=== PATIENT | male | born 1965 | race Caucasian/White ===

== ENCOUNTER 2017-06-09 20:43 | Inpatient (IN) | payer MEDICARE ==
[2017-06-09 22:23] VITALS: BMI 25.8
--- NOTE | 2017-06-09 22:52 | HP ---
CIWA Score - CIWA Score Nausea/Vomitin-Mild Nausea/No Vomiting Muscle Tremors: 4-Moderate,w/Arms Extend Anxiety: 4-Mod. Anxious/Guarded Agitation: 4-Moderately Restless Paroxysmal Sweats: 1-Minimal Palms Moist Orientation: 1-Uncertain about Date Tacttile Disturbances: 0-None Auditory Disturbances: 0-None Visual Disturbances: 0-None Headache: 0-None Present CIWA-Ar Total Score: 15 Admission ROS BHS - HPI Chief Complaint: withdrawal sx Allergies/Adverse Reactions: Allergies Allergy/AdvReac Type Severity Reaction Status Date / Time No Known Allergies Allergy Verified 06/09/17 22:32 History of Present Illness: 51 years old male with long history of alcohol nicotine dependence has copd and depression is admitted to detox Exam Limitations: No Limitations - Ebola screening Have you traveled outside of the country in the last 21 days: No (N) Have you had contact with anyone from an Ebola affected area: No Have you been sick,other than usual withdrawal symptoms: No Do you have a fever: No - Review of Systems Constitutional: Changes in sleep, Weight Stable EENT: reports: No Symptoms Reported, Blurred Vision (eye glasses), Dental Problems (multiple teeth missing) Respiratory: reports: SOB with Exertion Cardiac: reports: Edema (both ankles) GI: reports: Nausea, Poor Fluid Intake, Indigestion, Abdominal cramping Musculoskeletal: reports: No Symptoms Reported Integumentary: reports: No Symptoms Reported Neuro: reports: Tremors Endocrine: reports: No Symptoms Reported Hematology: reports: No Symptoms Reported Psychiatric: reports: Judgement Intact, Anxious, Depressed Other Systems: Reviewed and Negative Patient History - Patient Medical History Hx Anemia: No Hx Asthma: No Hx Chronic Obstructive Pulmonary Disease (COPD): Yes Hx Cancer: No Hx Cardiac Disorders: Yes (CHD) Hx Congestive Heart Failure: No Hx Hypertension: No Hx Hypercholesterolemia: Yes (no medications) Hx Pacemaker: No HX Cerebrovascular Accident: No Hx Seizures: No Hx Dementia: No Hx Diabetes: No Hx Gastrointestinal Disorders: Yes Hx Liver Disease: No Hx Genitourinary Disorders: No Hx Sexually Transmitted Disorders: No Hx Renal Disease (ESRD): No Hx Thyroid Disease: No Hx Human Immunodeficiency Virus (HIV): No Hx Hepatitis C: No Hx Depression: Yes Hx Suicide Attempt: No Hx Bipolar Disorder: No Hx Schizophrenia: No - Patient Surgical History Past Surgical History: Yes Hx Neurologic Surgery: No Hx Cataract Extraction: No Hx Cardiac Surgery: Yes (OPEN HEART trple by pass in 2009 at [facility]) Hx Lung Surgery: No Hx Breast Surgery: No Hx Breast Biopsy: No Hx Abdominal Surgery: No Hx Appendectomy: No Hx Cholecystectomy: No Hx Genitourinary Surgery: No Hx Orthopedic Surgery: No Anesthesia Reaction: No - PPD History Previous Implant?: Yes Documented Results: Negative w/proof Implanted On Prior R Admission?: Yes Date: 03/08/15 Results: no result PPD to be Administered?: Yes - Smoking Cessation Smoking history: Current every day smoker Have you smoked in the past 12 months: Yes Aproximately how many cigarettes per day: 60 Cigars Per Day: 0 Hx Chewing Tobacco Use: No Initiated information on smoking cessation: Yes 'Breaking Loose' booklet given: 06/09/17 - Substance & Tx. History Hx Alcohol Use: Yes Hx Substance Use: No Substance Use Type: Alcohol Hx Substance Use Treatment: Yes (2006) - Substances Abused Alcohol Route: Oral Frequency: Daily Amount used: liquor- 2 pints, beer- 3 six packs Age of first use: 16 Date of Last Use: 06/09/17 Family Disease History - Family Disease History Family History: Unremarkable Admission Physical Exam BHS - Vital Signs Vital Signs: Vital Signs - 24 hr 06/09/17 22:20 Temperature 98.1 F Pulse Rate 89 Respiratory 20 Rate Blood Pressure 97/59 - Physical General Appearance: Yes: Nourished, Appropriately Dressed, Moderate Distress, Alcohol on Breath, Tremorous, Irritable, Sweating, Anxious HEENTM: Yes: Hearing grossly Normal, Normal ENT Inspection, Normocephalic, Normal Voice Respiratory: Yes: Chest Non-Tender, No Respiratory Distress, No Accessory Muscle Use, Rhonchi, Hyperresonant, Inspiration Neck: Yes: Supple, Trachea in good position Breast: Yes: Breasts Symetrical Cardiology: Yes: Regular Rhythm, Regular Rate, S1, S2, Surgical Scar Abdominal: Yes: Normal Bowel Sounds, Non Tender, Soft Genitourinary: Yes: Within Normal Limits Back: Yes: Normal Inspection Musculoskeletal: Yes: full range of Motion, Gait Steady Extremities: Yes: Normal Inspection, Normal Range of Motion, Non-Tender, Tremors , Swelling (both ankles) Neurological: Yes: Alert, Motor Strength 5/5, Normal Response, Depressed Affect Integumentary: Yes: Warm, Clammy Lymphatic: Yes: Within Normal Limits - Diagnostic (1) Nicotine dependence Current Visit: Yes Status: Acute Qualifiers: Nicotine product type: cigarettes Substance use status: in withdrawal Qualified Code(s): F17.213 - Nicotine dependence, cigarettes, with withdrawal (2) Alcohol dependence with uncomplicated withdrawal Current Visit: Yes Status: Acute (3) GERD (gastroesophageal reflux disease) Current Visit: Yes Status: Chronic Qualifiers: Esophagitis presence: without esophagitis Qualified Code(s): K21.9 - Gastro-esophageal reflux disease without esophagitis (4) COPD (chronic obstructive pulmonary disease) Current Visit: Yes Status: Chronic Qualifiers: COPD type: emphysema Emphysema type: panlobular Qualified Code(s ): J43.1 - Panlobular emphysema (5) S/P triple vessel bypass Current Visit: Yes Status: Resolved (6) Depression (emotion) Current Visit: Yes Status: Suspected Qualifiers: Depression Type: dysthymia Qualified Code(s): F34.1 - Dysthymic disorder Comment: sober x 10 years Cleared for Admission [facility] - Detox or Rehab [facility] Level of Care: Medically Managed Detox Regimen/Protocol: Librium [facility] Breath Alcohol Content Breath Alcohol Content: 0.362 Urine Drug Screen - Results Drug Screen Negative: Yes
[2017-06-09] MEDS ORDERED: MENTHOL/PHENOL 1 EACH UD MM PRN (23:00)
[2017-06-09] MEDS ORDERED: ACETAMINOPHEN 325 MG TABLET (FP) PO PRN (23:00)
[2017-06-09] MEDS ORDERED: MAG HYDROX/AL HYDROX/SIMETH 30 ML UNIT-DOSE CUP PO PRN (23:00)
[2017-06-09] MEDS ORDERED: hydrOXYzine PAMOATE 50 MG CAPSULE (FP) PO PRN (23:00)
[2017-06-09] MEDS ORDERED: MAGNESIUM HYDROX 2400MG/30ML ORAL SUSPENSION 30 ML CUP PO PRN (23:00)
[2017-06-09] MEDS ORDERED: guaiFENesin/D-METHORPHAN HB 10 ML UNIT-DOSE CUPS PO PRN (23:00)
[2017-06-09] MEDS ORDERED: P-EPHED 60MG/TRIPROLIDI 2.5MG TABLET PO PRN (23:00)
[2017-06-09] MEDS ORDERED: chlordiazePOXIDE HCL 25 MG CAPSULE PO PRN (23:00)
[2017-06-09] MEDS ORDERED: NICOTINE POLACRILEX 4 MG GUM BC PRN (23:00)
[2017-06-09] MEDS ORDERED: MAGNESIUM CITRATE 300 ML BOTTLE PO PRN (23:00)
[2017-06-09] MEDS ORDERED: diphenhydrAMINE HCL 50 MG CAPSULE PO PRN (23:00)
[2017-06-09] MEDS ORDERED: ALBUTEROL SO4 6.7 GM HFA INHALER IH PRN (23:03)
[2017-06-09] MEDS: CLINDAMYCIN HCL 150 MG CAPSULE (FP) PO SCH (23:42)
[2017-06-09] MEDS: chlordiazePOXIDE HCL 25 MG CAPSULE PO SCH (23:42)
--- NOTE | 2017-06-10 00:53 | PN ---
S Progress Note Note: S-ASKED TO SEE PT FOR C/O NON RADIATING CONTINOUS C.P 07/04, SOB, WEAKNESS. DENIES FEVER, CHILLS, 0- LYING IN BED MILD DISTRESS, TACHYPNEIC, INTOXICATED CV TACHY EKG: NSR; VENT RATE [address]-T WAVE CHANGES CANNOT RULE OUT ANTERIOR INFARCT; ABN EKG LUNGS COARSE BREATH SOUNDS + WHEEZING AND HYPERRESONANCE VS 98.8 P92 R24 B/P 84/47 O2 RA 90% A- 51 Y.O. MALE ADMITTED WITH ETOH DEPENDENCE FOR DETOX NOW WITH C/O C.P. 07/04 AND IS HYPOTENSIVE. CLIENT STARTED ON CLINDAMYCIN FOR POSSIBLE PNA. PMHX CAD WITH BYPASS, HLD, GERD, NICOTINE DEPENDENCE. P- TRANSFER TO [facility] FOR EVAL C.P., HYPOTENSION AND R/O PNA EKG START 02 2 NC REPORT GIVEN TO DAMION HERNÁNDEZ WILL HOLD OFF ON NITRO 2/2 HYPOTENSION AND CLIENT WILL NOT REMAIN IN BED.
[2017-06-10] MEDS: CLINDAMYCIN HCL 150 MG CAPSULE (FP) PO SCH ×3 (06:23→22:39)
[2017-06-10] MEDS: chlordiazePOXIDE HCL 25 MG CAPSULE PO SCH ×4 (06:23→22:39)
[2017-06-10] MEDS: PRENATAL VITAMINS W/ FOLIC ACID TABLET (FP) PO SCH (10:21)
[2017-06-10] MEDS: BUDESONIDE/FORMETEROL FUMARATE 80/4.5 mcg INHALER IH SCH ×2 (10:21→22:39)
[2017-06-10] MEDS: NICOTINE 21 MG/24 HOURS TOPICAL PATCH TD SCH (10:21)
[2017-06-10] MEDS: RANITIDINE HCL 150 MG TABLET (FP) PO SCH ×2 (10:21→22:39)
[2017-06-10 10:36] LABS: MCH 29.9 pg (25.7-33.7); MCHC 33.3 g/dl (32.0-35.9); MEAN CELL VOLUME 89.8 fl (80-96); MEAN PLT VOLUME 8.8 fl (7.5-11.1); PLATELET COUNT 107 K/MM3 (134-434); RDW 13.8 % (11.9-15.9); WHITE BLOOD COUNT 9.8 K/mm3 (4.0-10.0)
[2017-06-10 10:50] LABS: ANION GAP 12 (8-16); CALCIUM 7.2 mg/dL (8.5-10.1); CO2 23 mmol/L (21-32); CREATININE 0.8 mg/dL (0.7-1.3); GLUCOSE,RANDOM 96 mg/dL (74-106); SGOT/AST 57 U/L (15-37); SGPT/ALT 52 U/L (12-78)
[2017-06-10 10:51] LABS: ALK PHOS 109 U/L (45-117); BILIRUBIN,TOTAL 0.7 mg/dL (0.2-1.0); TOT PROT 5.7 g/dl (6.4-8.2)
[2017-06-10] MEDS ORDERED: ONDANSETRON *ODT* 4 MG TABLET SL PRN (11:23)
--- NOTE | 2017-06-10 14:23 | PN ---
[facility] CIWA - CIWA Score Nausea/Vomitin-Int. Nausea w/Dry Heave Muscle Tremors: 2 Anxiety: 4-Mod. Anxious/Guarded Agitation: 3 Paroxysmal Sweats: 4-Forehead w/Sweat Beads Orientation: 2-Disoriented Date<2 days Tacttile Disturbances: 2-Mild Itch/Numbness/Burn Auditory Disturbances: 0-None Visual Disturbances: 0-None Headache: 0-None Present CIWA-Ar Total Score: 21 S Progress Note (SOAP) Subjective: Sweating, Nausea, Dry Heaving, Diarrhea. Objective: PT. A & O X 2 (DISORIENTED ABOUT DAY / DATE). PT. OBSERVED AMBULAITN MILVIA UNIT. NO ACUTE DISTRESS. PT. DENIES CHEST PAIN. LUNG SOUNDS AUSCULTATED CLEAR AND EQUAL BILATERALLY. 06/10/17 14:18 Vital Signs Temperature 97.6 F 06/10/17 14:13 Pulse Rate 91 H 06/10/17 14:13 Respiratory Rate 18 06/10/17 14:13 Blood Pressure 124/78 06/10/17 14:13 O2 Sat by Pulse Oximetry (%) Laboratory Tests 06/10/17 06/10/17 06/10/17 08:00 08:00 08:00 WBC 9.8 RBC 4.40 Hgb 13.2 Hct 39.5 MCV 89.8 MCH 29.9 MCHC 33.3 RDW 13.8 Plt Count 107 L MPV 8.8 Sodium 138 Potassium 3.3 L Chloride 103 Carbon Dioxide 23 Anion Gap 12 BUN 25 H Creatinine 0.8 Creat Clearance w eGFR > 60 Random Glucose 96 Calcium 7.2 L Total Bilirubin 0.7 AST 57 H ALT 52 Alkaline Phosphatase 109 Total Protein 5.7 L Albumin 3.0 L RPR Titer Nonreactive LABS NOTED. PATIENT EARLIER TAKEN TO [facility] RADIOLOGY DEPARTMENT FOR CXR (TO R/O/ PNEUMONIA) ; CXR NOT DONE WHILE PT. WAS EVALUATED IN [facility] ER LAST NIGHT. RESULTS OF CXR DONE TODAY NOTED. 06/10/17 14:19 Assessment: 06/10/17 14:20 WITHDRAWAL SYMPTOMS. Plan: CONTINUE DETOX. PRN ZOFRAN FOR NAUSEA. CONTINUE PROPHYLACTIC CLINDAMYCIN PRESCRIBED. K, 20 MEQ PO X 1 NOW, THEN 20 MEQ PO BID AFTER. INCREASE DAILY PO FLUID INTAKE.
[2017-06-10] MEDS ORDERED: POTASSIUM CHLORIDE TABS 20 MEQ TABLET.ER (FP) PO ONE (15:30)
[2017-06-10] MEDS: POTASSIUM CHLORIDE TABS 20 MEQ TABLET.ER (FP) PO SCH (17:38)
[2017-06-10] MEDS: LOPERAMIDE HCL 2 MG CAPSULE PO PRN (18:16)
[2017-06-10] MEDS ORDERED: THIAMINE HCL 100 MG TABLET (FP) PO SCH (22:00)
[2017-06-11] MEDS: CLINDAMYCIN HCL 150 MG CAPSULE (FP) PO SCH ×2 (06:15→14:14)
[2017-06-11] MEDS: chlordiazePOXIDE HCL 25 MG CAPSULE PO SCH ×3 (06:15→17:17)
[2017-06-11] MEDS: RANITIDINE HCL 150 MG TABLET (FP) PO SCH (10:12)
[2017-06-11] MEDS: POTASSIUM CHLORIDE TABS 20 MEQ TABLET.ER (FP) PO SCH ×2 (10:12→17:17)
[2017-06-11] MEDS: NICOTINE 21 MG/24 HOURS TOPICAL PATCH TD SCH (10:12)
[2017-06-11] MEDS: PRENATAL VITAMINS W/ FOLIC ACID TABLET (FP) PO SCH (10:12)
[2017-06-11] MEDS: BUDESONIDE/FORMETEROL FUMARATE 80/4.5 mcg INHALER IH SCH (10:12)
--- NOTE | 2017-06-11 10:23 | CONSULT ---
[facility] Psychiatric Consult - Data Date of interview: 06/11/17 Admission source: Self-referred Identifying data: Mr Blair is a 51 years old male in a common-law relationship, father of 3 daughters, unemployed with no source of income, living with family seeking detox treatment for alcohol Substance Abuse History: Reports history of alcohol abuse. He started drinking at age 16 and consumes 2 pints of liquor &3x 6pk of beer daily. Last drink on . Smokes cigarettes 3ppd Medical History: Significant for COPD, hyperlipidemia, CAD and history of cardiac surgery for triple bypass in 2008. Smokes cigarettes 3ppd Psychiatric History: Denies history of previous psychiatric treatment Physical/Sexual Abuse/Trauma History: Denies history of emotional, physical or sexual abuse as well as DV relatonship Additional Comment: Denies criminal history Mental Status Exam - Mental Status Exam Alert and Oriented to: Time, Place, Person Cognitive Function: Fair Patient Appearance: Well Groomed Mood: Hopeful, Happy, Euthymic Affect: Appropriate Patient Behavior: Cooperative Speech Pattern: Clear Voice Loudness: Normal Thought Process: Intact, Goal Oriented Thought Disorder: Not Present Hallucinations: Denies Suicidal Ideation: Denies Homicidal Ideation: Denies Insight/Judgement: Poor Sleep: Fair Appetite: Good Muscle strength/Tone: Normal Gait/Station: Normal Psychiatric Findings - Problem List (Carmel 1, 2,3) (1) Alcohol dependence with uncomplicated withdrawal Current Visit: Yes Status: Acute (2) Nicotine dependence Current Visit: Yes Status: Acute Qualifiers: Nicotine product type: cigarettes Substance use status: in withdrawal Qualified Code(s): F17.213 - Nicotine dependence, cigarettes, with withdrawal (3) COPD (chronic obstructive pulmonary disease) Current Visit: Yes Status: Chronic Qualifiers: COPD type: emphysema Emphysema type: panlobular Qualified Code(s ): J43.1 - Panlobular emphysema (4) GERD (gastroesophageal reflux disease) Current Visit: Yes Status: Chronic Qualifiers: Esophagitis presence: without esophagitis Qualified Code(s): K21.9 - Gastro-esophageal reflux disease without esophagitis (5) S/P triple vessel bypass Current Visit: Yes Status: Resolved (6) Coronary arteriosclerosis after coronary artery bypass grafting Current Visit: No Status: Acute (7) Hypercholesterolemia Current Visit: No Status: Acute - Initial Treatment Plan Initial Treatment Plan: Continue inpatient detoxification
[2017-06-11 10:35] LABS: URINE APPEARANCE SLCLOUDY; URINE BILIRUBIN NEGATIVE (NEGATIVE); URINE BLOOD NEGATIVE (NEGATIVE); URINE COLOR YELLOW; URINE GLUCOSE (UA) NEGATIVE (NEGATIVE); URINE KETONE NEGATIVE (NEGATIVE); URINE LEUK ESTERASE NEGATIVE (NEGATIVE); URINE NITRITE NEGATIVE (NEGATIVE); URINE PROTEIN NEGATIVE (NEGATIVE); URINE UROBILINOGEN NEGATIVE mg/dL (0.2-1.0)
[2017-06-11] MEDS: LOPERAMIDE HCL 2 MG CAPSULE PO PRN (13:15)
[2017-06-11] MEDS ORDERED: ASPIRIN COATED 81 MG TABLET.EC PO SCH (16:30)
--- NOTE | 2017-06-11 16:31 | PN ---
S CIWA - CIWA Score Nausea/Vomitin Muscle Tremors: 3 Anxiety: 4-Mod. Anxious/Guarded Agitation: 0-Normal Activity Paroxysmal Sweats: 3 Orientation: 0-Oriented Tacttile Disturbances: 1-Very Mild Itch/Numbness Auditory Disturbances: 0-None Visual Disturbances: 0-None Headache: 0-None Present CIWA-Ar Total Score: 14 BHS Progress Note (SOAP) Subjective: Tremor, chills, nausea, anxious; c/o chest pain continuous. Patient reports cardiac bypass surgery (3 stents) 7-8 years ago and that he has been noncompliant with both his medications and follow up with his full time paramedic and PCP. As per chart, patient recently was sent to [facility] ER for evaluation for said complaint. He denies sob, diaphoresis, vomiting or any radiation of chest pain. Patient asked by staff writer to use one finger to point to area of chest pain and he pointed to the xiphoid process (patient stated, "it's this little bone that is hurting)." As per patient, he didn't take any pain medication. Patient encouraged to take pain medication. Objective: 06/11/17 16:31 Last Vital Signs Temp Pulse Resp BP Pulse Ox 97.1 F L 96 H 18 136/74 06/11/17 13:37 06/11/17 13:37 06/11/17 13:37 06/11/17 13:37 PE: Resp: initial scant anterior wheezing at left mid chest which cleared with coughing, lungs otherwise ctab/l, no further adventitious breath sounds Chest: mild tenderness on palpation at xiphoid process (bony prominence) CV: rrr, s1s2+, apical rate 76 bpm Skin: warm to touch, turgor good Laboratory Tests 06/10/17 06/10/17 06/10/17 08:00 08:00 08:00 WBC 9.8 RBC 4.40 Hgb 13.2 Hct 39.5 MCV 89.8 MCH 29.9 MCHC 33.3 RDW 13.8 Plt Count 107 L MPV 8.8 Sodium 138 Potassium 3.3 L Chloride 103 Carbon Dioxide 23 Anion Gap 12 BUN 25 H Creatinine 0.8 Creat Clearance w eGFR > 60 Random Glucose 96 Calcium 7.2 L Total Bilirubin 0.7 AST 57 H ALT 52 Alkaline Phosphatase 109 Total Protein 5.7 L Albumin 3.0 L Urine Color Urine Appearance Urine pH Ur Specific Homer Urine Protein Urine Glucose (UA) Urine Ketones Urine Blood Urine Nitrite Urine Bilirubin Urine Urobilinogen RPR Titer Nonreactive 06/11/17 07:30 WBC RBC Hgb Hct MCV MCH MCHC RDW Plt Count MPV Sodium Potassium Chloride Carbon Dioxide Anion Gap BUN Creatinine Creat Clearance w eGFR Random Glucose Calcium Total Bilirubin AST ALT Alkaline Phosphatase Total Protein Albumin Urine Color Yellow Urine Appearance Slcloudy Urine pH 7.0 Ur Specific Homer 1.015 Urine Protein Negative Urine Glucose (UA) Negative Urine Ketones Negative Urine Blood Negative Urine Nitrite Negative Urine Bilirubin Negative Urine Urobilinogen Negative RPR Titer Labs noted: plt 107, K 3.3, bun 25, Ca 7.2 Assessment: 06/11/17 16:33 Withdrawal symptoms C/O Chest pain: pain noted at xiphoid process; history of CAD (cardiac stent placement) Noted with mild thrombocytopenia, mild hypokalemia, azotemia and hypocalcemia Plan: Continue detox Chest pain: (pain noted at xiphoid process): encouraged to take tylenol prn, continue to monitor, consider chest xray if warranted History of CAD (s/p stent placement x 3 vessels 7-8 years ago as per patient): start lipitor 40mg PO qhs, start ASA 81mg EC PO daily, fasting lipid panel in AM. Patient encouraged to resume follow up with his full time paramedic and PCP post discharge. Mild thrombocytopenia: monitor periodically Hypokalemia: continue PO potassium supplement, repeat serum potassium level Azotemia: encouraged to drink lots of water Hypocalcemia: start calcium carbonate 500mg PO BID (give with food), repeat serum sodium level
[2017-06-11 17:43] VITALS: BP 118/77; PULSE 85; TEMP 99.3
--- NOTE | 2017-06-11 19:32 | DS ---
[facility] Detox Discharge Summary Admission Date: 06/09/17 Discharge Date: 06/11/17 - History Present History: Alcohol Dependence Pertinent Past History: COPD GERD Hypocalcemia Hypercholesterolemia - Physical Exam Results Vital Signs: Vital Signs Temperature 99.3 F 06/11/17 17:42 Pulse Rate 85 06/11/17 17:42 Respiratory Rate 18 06/11/17 17:42 Blood Pressure 118/77 06/11/17 17:42 O2 Sat by Pulse Oximetry (%) Pertinent Admission Physical Exam Findings: Withdrawal sx. Laboratory Last Values WBC 9.8 K/mm3 (4.0-10.0) 06/10/17 08:00 RBC 4.40 M/mm3 (4.00-5.60) 06/10/17 08:00 Hgb 13.2 GM/dL (11.7-16.9) 06/10/17 08:00 Hct 39.5 % (35.4-49) 06/10/17 08:00 MCV 89.8 fl (80-96) 06/10/17 08:00 MCH 29.9 pg (25.7-33.7) 06/10/17 08:00 MCHC 33.3 g/dl (32.0-35.9) 06/10/17 08:00 RDW 13.8 % (11.9-15.9) 06/10/17 08:00 Plt Count 107 K/MM3 (134-434) L 06/10/17 08:00 MPV 8.8 fl (7.5-11.1) 06/10/17 08:00 Sodium 138 mmol/L (136-145) 06/10/17 08:00 Potassium 3.3 mmol/L (3.5-5.1) L 06/10/17 08:00 Chloride 103 mmol/L (98-107) 06/10/17 08:00 Carbon Dioxide 23 mmol/L (21-32) 06/10/17 08:00 Anion Gap 12 (8-16) 06/10/17 08:00 BUN 25 mg/dL (7-18) H 06/10/17 08:00 Creatinine 0.8 mg/dL (0.7-1.3) 06/10/17 08:00 Creat Clearance w eGFR > 60 (>60) 06/10/17 08:00 Random Glucose 96 mg/dL (74-106) 06/10/17 08:00 Calcium 7.2 mg/dL (8.5-10.1) L 06/10/17 08:00 Total Bilirubin 0.7 mg/dL (0.2-1.0) 06/10/17 08:00 AST 57 U/L (15-37) H 06/10/17 08:00 ALT 52 U/L (12-78) 06/10/17 08:00 Alkaline Phosphatase 109 U/L (45-117) 06/10/17 08:00 Total Protein 5.7 g/dl (6.4-8.2) L 06/10/17 08:00 Albumin 3.0 g/dl (3.4-5.0) L 06/10/17 08:00 Urine Color Yellow 06/11/17 07:30 Urine Appearance Slcloudy 06/11/17 07:30 Urine pH 7.0 (5.0-8.0) 06/11/17 07:30 Ur Specific Sunset 1.015 (1.005-1.025) 06/11/17 07:30 Urine Protein Negative (NEGATIVE) 06/11/17 07:30 Urine Glucose (UA) Negative (NEGATIVE) 06/11/17 07:30 Urine Ketones Negative (NEGATIVE) 06/11/17 07:30 Urine Blood Negative (NEGATIVE) 06/11/17 07:30 Urine Nitrite Negative (NEGATIVE) 06/11/17 07:30 Urine Bilirubin Negative (NEGATIVE) 06/11/17 07:30 Urine Urobilinogen Negative mg/dL (0.2-1.0) 06/11/17 07:30 RPR Titer Nonreactive (NONREACTIVE) 06/10/17 08:00 labs noted,k+ replacement given - Treatment Patient has Accepted a Rehab Referral to: [facility] meetings - Medication Discharge Medications: Ambulatory Orders NK [No Known Home Medication] 06/09/17 - Diagnosis (1) Alcohol dependence with uncomplicated withdrawal Status: Acute (2) Nicotine dependence Status: Acute Qualifiers: Nicotine product type: cigarettes Substance use status: in withdrawal Qualified Code(s): F17.213 - Nicotine dependence, cigarettes, with withdrawal (3) COPD (chronic obstructive pulmonary disease) Status: Chronic Qualifiers: COPD type: emphysema Emphysema type: panlobular Qualified Code(s ): J43.1 - Panlobular emphysema (4) GERD (gastroesophageal reflux disease) Status: Chronic Qualifiers: Esophagitis presence: without esophagitis Qualified Code(s): K21.9 - Gastro-esophageal reflux disease without esophagitis (5) Coronary arteriosclerosis 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
[2017-06-11] MEDS ORDERED: CALCIUM CARBONATE 650 MG TABLET PO SCH ×2 (22:00)
[2017-06-11] MEDS ORDERED: ATORVASTATIN CA 40 MG TABLET (FP) PO SCH (22:00)
[2017-06-11] MEDS ORDERED: chlordiazePOXIDE 5 MG CAPSULE PO SCH (23:00)
--- NOTE | 2017-06-12 17:02 | EKG ---
Test Reason : Blood Pressure : / mmHG Vent. Rate : 082 BPM Atrial Rate : 082 BPM P-R Int : 158 ms QRS Dur : 104 ms QT Int : 382 ms P-R-T Axes : 069 -08 061 degrees QTc Int : 446 ms NORMAL SINUS RHYTHM CANNOT RULE OUT ANTERIOR INFARCT (CITED ON OR BEFORE 09-JUN-2017) ABNORMAL ECG WHEN COMPARED WITH ECG OF 09-JUN-2017 23:38, NO SIGNIFICANT CHANGE WAS FOUND Confirmed by CANDI REYNOLDS MD ([id number]) on 06/12/2017 5:01:59 PM Referred By: Confirmed By:CANDI REYNOLDS MD
--- NOTE | 2017-06-12 17:02 | EKG ---
Test Reason : Blood Pressure : / mmHG Vent. Rate : 078 BPM Atrial Rate : 078 BPM P-R Int : 154 ms QRS Dur : 102 ms QT Int : 382 ms P-R-T Axes : 073 -23 057 degrees QTc Int : 435 ms NORMAL SINUS RHYTHM CANNOT RULE OUT ANTERIOR INFARCT , AGE UNDETERMINED ABNORMAL ECG WHEN COMPARED WITH ECG OF 01-NOV-2014 21:21, T WAVE VARIATION Confirmed by CANDI REYNOLDS MD ([id number]) on 06/12/2017 5:02:14 PM Referred By: Confirmed By:CANDI REYNOLDS MD
[2017-06-12] MEDS ORDERED: chlordiazePOXIDE HCL 10 MG CAPSULE PO SCH (23:00)
== END 2017-06-11 18:27 | disposition left against medical advice (07) | DRG 770 ==
LOC: YASAS 20:43 → Y3N 22:38
PROVIDERS: ADMIT Internal Medicine; ATTEND Internal Medicine
PROC: HZ2ZZZZ Detoxification Services for Substance Abuse Treatment (ICD-10-PCS; principal; 2017-06-09)
DX: F10.230 Alcohol dependence with withdrawal, uncomplicated (principal); J43.1 Panlobular emphysema; E78.00 Pure hypercholesterolemia, unspecified; Z95.1 Presence of aortocoronary bypass graft; E83.51 Hypocalcemia
CPT/HCPCS: 36415; 71020-TC; 80053; 81003; 85027; 86593; 93005; 93010

== ENCOUNTER 2017-06-10 01:31 | Emergency (ER) | payer SELFPAY ==
--- NOTE | 2017-06-10 01:39 | PDOC ---
History of Present Illness - General History Source: Patient, EMS, Old Records - History of Present Illness Initial Comments: 06/10/17 02:14 The patient is a 51 year old male from [facility], with a significant past medical history of CHF, COPD, HLD, Opioid abuse who presents to the emergency department with chest pain. Patient was admitted to [facility] for EtOH abuse. Patient was complaining of chest pain and was sent to the ED for further evaluation. Upon arrival, patient is snoring but arousable. It is difficult to keep the patient awake to answer questions in a coherent manner. However when the patient awakes, he denies any chest pain or any further complaints. PAST MEDICAL HISTORY: CHF, COPD, HLD, PAST SURGICAL HISTORY: CABG (triple bypass) FAMILY HISTORY: No pertinent history SOCIAL HISTORY: Opioid and EToh abuse. MEDICATIONS: Reviewed ALLERGIES: NKA Adult ROS General: No fevers or chills, no weakness, no weight loss HEENT: No change in vision. No sore throat, No ear pain CardioVascular: +chest pain. No shortness of breath Respiratory:No cough, or wheezing. Gastrointestinal: no nausea, vomiting, diarrhea or constipation, No rectal bleeding Genitourinary: No dysuria, hematuria, or frequency Musculoskeletal: No joint or muscle pain or swelling Neurologic: No headache, vertigo, dizziness or loss of consciousness Psychiatric: nor depression Skin: No rashes or easy bruising Endocrine: no increased thirst or abnormal weight change Allergic: no skin or latex allergy. History is unobtainable from patient. General: Well-nourished well-developed individual, no acute distress. +Slapped and snored throughout exam. HEENT: Throat: Normal, tonsils normal, no erythema or exudate Neck: Supple, no meningeal signs, no lymphadenopathy Eyes::Pupils equal reactive and round, extraocular motion intact Chest: Nontender to palpation Cardiac: S1-S2 normal, regular rate and rhythm, no murmurs rubs or gallops Respiratory: Lungs clear to auscultation bilateral Abdomen: +Protuberant. Nondistended, normal bowel sounds, nontender to palpation diffusely Extremities: Warm, dry, no cyanosis, clubbing, or edema Skin: No rashes Neuro: Alert and oriented x3, nonfocal exam, grossly intact, normal gait Psych: Normal mood and affect EKG Reviewed and Interpreted by me NSR Cannot rule out anterior infarct, age undetermined Abnormal ECG <Randee Marshall - Last Filed: 06/10/17 02:14> - General History Source: Patient Exam Limitations: No Limitations - History of Present Illness Initial Comments: 06/10/17 04:14 A portion of this note was documented by scribe services under my direction. I have reviewed the details of the note, within reason, and agree with the documentation. The case summary and management plan written by me. Assessment and plan: From [facility] center for evaluation of patient has a cardiac history. However on arrival in the emergency room was intoxicated positive alcohol. Patient's 186. Patient denied any chest pain or any complaints at the time however several hours later he did wake up somewhat and aspirin Librium and something for nausea. Patient's EKG showed normal sinus rhythm at a rate of [address]-T wave changes all anterior infarct otherwise normal Patient's troponin was negative Patient's heart score is 2 Patient was given some Zofran. The rest of his lab work was unremarkable. Patient discharged back to [facility]. <Leo Gonzalez I - Last Filed: 06/10/17 04:18> - General Stated Complaint: BLOOD PRESSURE PROBLEM Time Seen by Provider: 06/10/17 01:36 Past History <Randee Marshall - Last Filed: 06/10/17 02:14> - Past Medical History Anemia: No Asthma: No Cancer: No Cardiac Disorders: Yes (CHD) CVA: No COPD: Yes CHF: No Dementia: No Diabetes: No GI Disorders: Yes Disorders: No HTN: No Hypercholesterolemia: Yes (no medications) Kidney Stones: No Liver Disease: No Suicide Attempt (Hx): No Seizures: No Thyroid Disease: No - Surgical History Abdominal Surgery: No Appendectomy: No Cardiac Surgery: Yes (OPEN HEART trple by pass in 2008 at [facility]) Cholecystectomy: No Lung Surgery: No Neurologic Surgery: No Orthopedic Surgery: No - Reproductive History Testicular Surgery: No - Psycho/Social/Smoking Cessation Hx Anxiety: No Suicidal Ideation: No Smoking History: Current every day smoker Have you smoked in the past 12 months: Yes Number of Cigarettes Smoked Daily: 60 Cigars Per Day: 0 'Breaking Loose' booklet given: 06/09/17 Hx Alcohol Use: Yes Drug/Substance Use Hx: No Substance Use Type: Alcohol Hx Substance Use Treatment: Yes (2006) <Leo Gonzalez I - Last Filed: 06/10/17 04:18> - Past Medical History Allergies/Adverse Reactions: Allergies Allergy/AdvReac Type Severity Reaction Status Date / Time No Known Allergies Allergy Verified 06/10/17 01:41 Home Medications: Ambulatory Orders NK [No Known Home Medication] 06/09/17 *Physical Exam - Vital Signs Last Vital Signs Temp Pulse Resp BP Pulse Ox 97.9 F 85 16 100/60 96 06/10/17 01:41 06/10/17 01:41 06/10/17 01:41 06/10/17 01:41 06/10/17 01:41 <Randee Marshall - Last Filed: 06/10/17 02:14> Heart Score/ECG Review - History History: Slightly suspicious - Electrocardiogram EKG: Normal - Age Age: 45-65 - Risk Factors Risk Factors Heart Score: Yes Positive family hx of cardiac disease Based on the list above the patient has:: 1-2 risk factors - Troponin Troponin: </= normal limit - Score Heart Score - Total: 2 <Leo Gonzalez I - Last Filed: 06/10/17 04:18> ED Treatment Course - LABORATORY CBC & Chemistry Diagram: 06/10/17 03:32 06/10/17 03:32 <Leo Gonzalez I - Last Filed: 06/10/17 04:18> *DC/Admit/Observation/Transfer - Attestations Scribe Attestion: 06/10/17 02:15 Documentation prepared by Randee Marshall, acting as nuclear medical technologist for Leo Gonzalez MD <Randee Marshall - Last Filed: 06/10/17 02:14> - Discharge Dispostion Admit: No <Leo Gonzalez I - Last Filed: 06/10/17 04:18> Diagnosis at time of Disposition: Alcohol dependence, Alcohol use with intoxication - Discharge Dispostion Disposition: TRANSFER ACUTE CARE/OTHER HOSP Condition at time of disposition: Stable - Referrals Referrals: Kenny Stubbs MD [Primary Care Provider] - - Patient Instructions Printed Discharge Instructions: DI for Atypical Chest Pain Additional Instructions: Do not continue to drink alcohol during detox program Return to the emergency department immediately with ANY new, persistent or worsening symptoms. Continue any medications as previously prescribed by your physician. You should follow up with your primary doctor as soon as possible regarding today's emergency department visit. . Please make sure your doctor reviews the results of your emergency evaluation. Thank you for coming to the Emergency Department today for your care. It was a pleasure to see you today. Please note that your evaluation is INCOMPLETE until you follow-up with your doctor.
[2017-06-10 01:43] VITALS: BP 100/60; PULSE 85; TEMP 97.9; BMI 28.1
[2017-06-10 03:37] LABS: BASOPHIL 0.2 % (0-2.0); EOSINOPHIL 0.1 % (0-4.5); MCH 30.3 pg (25.7-33.7); MCHC 34.3 g/dl (32.0-35.9); MEAN CELL VOLUME 88.6 fl (80-96); NEUTROPHILS 73.4 % (42.8-82.8); PLATELET COUNT 114 K/MM3 (134-434); WHITE BLOOD COUNT 11.7 K/mm3 (4.0-10.0)
[2017-06-10] MEDS ORDERED: ONDANSETRON *ODT* 4 MG TABLET SL ONE (03:53)
[2017-06-10 04:04] LABS: ALBUMIN 3.1 g/dl (3.4-5.0); ANION GAP 14 (8-16); BILIRUBIN,TOTAL 0.7 mg/dL (0.2-1.0); CALCIUM 7.1 mg/dL (8.5-10.1); CO2 20 mmol/L (21-32); GLUCOSE,RANDOM 101 mg/dL (74-106); SGOT/AST 60 U/L (15-37); SGPT/ALT 54 U/L (12-78)
[2017-06-10 04:06] LABS: ALK PHOS 114 U/L (45-117); CPK 388 IU/L (39-308); TROPONIN I < 0.02 ng/ml (0.00-0.05)
[2017-06-10] MEDS ORDERED: ONDANSETRON *ODT* 4 MG TABLET ONE (04:12)
== END 2017-06-10 05:00 | disposition other institution (70) ==
LOC: JER 01:31
DX: R07.89 Other chest pain (principal); F10.220 Alcohol dependence with intoxication, uncomplicated; I25.10 Atherosclerotic heart disease of native coronary artery without angina pectoris; F17.210 Nicotine dependence, cigarettes, uncomplicated; Z95.1 Presence of aortocoronary bypass graft; I50.9 Heart failure, unspecified; J44.9 Chronic obstructive pulmonary disease, unspecified; E78.00 Pure hypercholesterolemia, unspecified
CPT/HCPCS: 36415; 80053; 80307; 82553; 84484; 85025; 99282-25

== ENCOUNTER 2017-06-16 12:20 | Emergency (ER) | payer SELFPAY ==
[2017-06-16] MEDS ORDERED: ASPIRIN 81 MG CHEWABLE TABLETS PO ONE (12:24)
--- NOTE | 2017-06-16 12:31 | PDOC ---
History of Present Illness - General Chief Complaint: Shortness of Breath Stated Complaint: SHORT OF BREATH, CALF PAIN Time Seen by Provider: 06/16/17 12:22 History Source: Patient Exam Limitations: No Limitations - History of Present Illness Initial Comments: 06/16/17 12:26 This patient is a is a 51 year old male with PMH CAD, 3vCABG, HLD presenting to the ER with a complaint of shortness of breath Pt has been non compliant with his medications Symptoms began 2 weeks ago while drinking alcohol He noted SOB with exertion, he now notes that he can only walk 1/2 a block. He is also short of breath at rest. He noted increased shortness of breath when laying flat in bed He does have a cough, no sputum change No fevers or chills Pt has bilateral calf pain on exertion which resolves at rest He also noted, chest pain, described as chest tightness, located in the center of the chest, exacerbated by walking, alleviated by resting, rated 7/10 at its worse. PCP: none Past Medical / Surgical History CAD, 3v CABG 2009- HLD ETOH abuse, recent detox, left the program AMA 5 days ago Social History Recent travel: none Family History: father , aneurysm; mother with no medical problems. Smokinppd Alcohol: quit Drugs: oxycodone REVIEW OF SYSTEMS GENERAL/CONSTITUTIONAL: No: fever, chills, weakness, loss of appetite. HEAD, EYES, EARS, NOSE AND THROAT: No: change in vision, ear pain, discharge, sore throat, throat swelling. CARDIOVASCULAR: YEs: chest pain No: lightheadedness, palpitations, syncope RESPIRATORY: Yes: shortness of breath No: cough,wheezing, hemoptysis, stridor. GASTROINTESTINAL: No: nausea, vomiting, diarrhea, abdominal pain GENITOURINARY: No: dysuria, hematuria, frequency, urgency, flank pain. MUSCULOSKELETAL: No: back pain, neck pain, joint pain, muscle swelling or pain SKIN : No: lesions, pallor, rash or easy bruising. NEUROLOGIC: No: headache, vertigo, paresthesias, weakness ENDOCRINE: No: unexplained weight gain or loss HEMATOLOGIC/LYMPHATIC: No: anemia, easy bleeding, swelling nodes. PHYSICAL EXAMINATION: GENERAL: Awake, alert, and fully oriented, in no acute distress. HEAD: Normal with no signs of trauma. EYES: Pupils equal, round and reactive to light, extraocular movements intact, sclera not pale, conjunctiva clear. EARS, NOSE, THROAT: Ears normal, nares patent, oropharynx clear without exudates. Moist mucous membranes. NECK: Normal range of motion, supple without lymphadenopathy, JVD, or masses. LUNGS: Breath sounds equal, clear to auscultation bilaterally. No wheezes, and no crackles. No accessory muscle use. HEART: Regular rate and rhythm, normal S1 and S2 without murmur, rub or gallop. ABDOMEN: Soft, nontender, not distended, normoactive bowel sounds, no guarding, no rebound, no masses. No hepatomegaly or splenomegaly. MUSCULOSKELETAL: Normal range of motion at all joints. No bony deformities or tenderness. No CVA tenderness. UPPER EXTREMITIES: 2+ pulses, warm, well-perfused. No cyanosis. No clubbing. Cap refill <2 seconds. No peripheral edema. LOWER EXTREMITIES: 2+ pulses, warm, well-perfused. No calf tenderness. No peripheral edema. NEUROLOGICAL: Cranial nerves II-XII intact. Normal speech. Normal gait. PSYCHIATRIC: Cooperative. Good eye contact. Appropriate mood and affect. SKIN: Warm, dry, normal turgor, no rashes or lesions noted. 06/16/17 12:28 06/16/17 12:31 06/16/17 12:32 06/16/17 12:53 06/16/17 15:04 06/16/17 15:14 Past History - Past Medical History Allergies/Adverse Reactions: Allergies Allergy/AdvReac Type Severity Reaction Status Date / Time No Known Allergies Allergy Verified 06/16/17 12:25 Home Medications: Ambulatory Orders NK [No Known Home Medication] 06/09/17 Anemia: No Asthma: No Cancer: No Cardiac Disorders: Yes (CHD) CVA: No COPD: Yes CHF: No Dementia: No Diabetes: No GI Disorders: Yes Disorders: No HTN: No Hypercholesterolemia: Yes (no medications) Kidney Stones: No Liver Disease: No Seizures: No Thyroid Disease: No - Surgical History Abdominal Surgery: No Appendectomy: No Cardiac Surgery: Yes (OPEN HEART trple by pass in 2008 at [facility]) Cholecystectomy: No Lung Surgery: No Neurologic Surgery: No Orthopedic Surgery: No - Reproductive History Testicular Surgery: No - Suicide/Smoking/Psychosocial Hx Smoking History: Current every day smoker Have you smoked in the past 12 months: Yes Number of Cigarettes Smoked Daily: 60 Cigars Per Day: 0 'Breaking Loose' booklet given: 06/09/17 Hx Alcohol Use: Yes Drug/Substance Use Hx: No Substance Use Type: Alcohol Hx Substance Use Treatment: Yes (2006) ED Treatment Course - LABORATORY CBC & Chemistry Diagram: 06/16/17 12:35 06/16/17 12:35 - RADIOLOGY Radiology Studies Ordered: Category Date Time Status CHEST PA & LAT [RAD] Stat Radiology 06/16/17 12:24 Ordered Medical Decision Making - Critical Care Time Total Critical Care Time (minutes): 35 Critical Care Statement: The care of this patient involved high complexity decision making to prevent further life threatening deterioration of the patient 's condition and/or to evaluate & treat vital organ system(s) failure or risk of failure. - Medical Decision Making 06/16/17 15:27 51 yo M with cardiovascular risk factors presenting to the ER with a complaint of chest pain, dyspnea on exertion, shortness of breath with laying flat No recent URI symptoms of note to suggest pneumonia or bronchitis No change in sputum, unlikely COPD exacerbation Pt presentation most consistent with ACS, PE, CHF, Pericardial effusion Will do : Labs EKG CXR Consider CTA chest Will re assess 06/16/17 15:27 Laboratory Tests 06/16/17 06/16/17 06/16/17 12:25 12:35 12:35 WBC 10.1 Hgb 10.0 L D Hct 30.2 L D Plt Count 234 Neutrophils % 57.2 Lymphocytes % 27.8 PT with INR 11.5 Sodium Potassium Chloride Carbon Dioxide BUN Creatinine Random Glucose AST ALT Troponin I < 0.03 L B-Natriuretic Peptide Total Protein Albumin 06/16/17 12:35 WBC Hgb Hct Plt Count Neutrophils % Lymphocytes % PT with INR Sodium 136 Potassium 3.6 Chloride 103 Carbon Dioxide 25 BUN 7 Creatinine 0.7 D Random Glucose 94 D AST 94 H D ALT 71 H D Troponin I B-Natriuretic Peptide Pending Total Protein 6.0 L Albumin 2.8 L D 06/16/17 16:24 CT negative for PE, pneumonia (+) small left base nodule Pt deciding on whether to stay in the hospital Pt states that he needs to do something at [facility] I have explained to him NUMEROUS time my concern about his shortness of breath being an anginal equivalent given he had these symptoms previously when he required a CABG. The patient understand this and in fact this was the reason he decided to come to the hospital, because he feared this could be cardiac in origin. Pt present for my explanation, she also has tried to get him to stay in the hospital. He understands that he is leaving AMA He states he will come back Note: The patient insists on leaving the emergency dept and is signing out against medical advice. The patient understands the risks and complications that may result from the refusal of medical care and admission which includes and permanent disability. The patient has the mental capacity of understanding the risks of refusing care and is capable of making an informed decision. The patient was instructed to return to the emergency department should he change his mind regarding medical care or should his condition worsen. The patient signed the Against Medical Advice form. 06/17/17 09:58 *DC/Admit/Observation/Transfer Diagnosis at time of Disposition: Chest pain Qualifiers: Chest pain type: unspecified Qualified Code(s): R07.9 - Chest pain, unspecified - Discharge Dispostion Disposition: AGAINST MEDICAL ADVICE Condition at time of disposition: Good - Referrals Referrals: Pino Medel [Primary Care Provider] -
[2017-06-16] MEDS ORDERED: ASPIRIN 81 MG CHEWABLE TABLETS ONE (12:36)
[2017-06-16 12:46] VITALS: TEMP 98.7; BMI 25.8
[2017-06-16 12:48] LABS: BASOPHIL 0.4 % (0-2.0); EOSINOPHIL 0.7 % (0-4.5); MCH 31.1 pg (25.7-33.7); MCHC 33.3 g/dl (32.0-35.9); MEAN CELL VOLUME 93.4 fl (80-96); MEAN PLT VOLUME 7.3 fl (7.5-11.1); NEUTROPHILS 57.2 % (42.8-82.8); PLATELET COUNT 234 K/MM3 (134-434); WHITE BLOOD COUNT 10.1 K/mm3 (4.0-10.8)
[2017-06-16 13:07] LABS: ALBUMIN 2.8 g/dl (3.5-5.0); ALK PHOS 78 U/L (32-92); ANION GAP 8 (8-16); CALCIUM 8.3 mg/dl (8.4-10.2); CO2 25 mmol/L (22-28); CREATININE 0.7 mg/dl (0.6-1.3); GLUCOSE,RANDOM 94 mg/dl (74-106); MAGNESIUM 2.2 mg/dL (1.8-2.4); SGOT/AST 94 U/L (10-42); SGPT/ALT 71 U/L (10-40)
[2017-06-16 13:10] LABS: INR 1.03 (0.82-1.09); PROTHROMBIN TIME (PATIENT) 11.5 SEC (10.2-13.0)
[2017-06-16 14:38] VITALS: BP 105/77; PULSE 67
--- NOTE | 2017-06-20 20:56 | EKG ---
Test Reason : Blood Pressure : / mmHG Vent. Rate : 065 BPM Atrial Rate : 065 BPM P-R Int : 136 ms QRS Dur : 090 ms QT Int : 384 ms P-R-T Axes : 000 -10 -16 degrees QTc Int : 399 ms NORMAL SINUS RHYTHM LOW VOLTAGE QRS IN LIMB LEADS BORDERLINE ECG WHEN COMPARED WITH ECG OF 10-JUN-2017 01:38, MINIMAL CRITERIA FOR ANTERIOR INFARCT ARE NO LONGER PRESENT NONSPECIFIC T WAVE ABNORMALITY NOW EVIDENT IN INFERIOR LEADS NO CLINICAL INFORMATION IS AVAILABLE REPEAT EKG IF CLINICALLY INDICATED Confirmed by BARRY PRESSLEY MD ([id number]) on 06/20/2017 8:56:04 PM Referred By: Araceli FOWLER Confirmed By:BARRY PRESSLEY MD
== END 2017-06-16 16:30 | disposition left against medical advice (07) ==
LOC: FER 12:20
DX: R07.9 Chest pain, unspecified (principal); E78.5 Hyperlipidemia, unspecified; I25.10 Atherosclerotic heart disease of native coronary artery without angina pectoris; Z95.1 Presence of aortocoronary bypass graft; F17.210 Nicotine dependence, cigarettes, uncomplicated
CPT/HCPCS: 36415; 71020-TC; 71275-TC; 80053; 83735; 83880; 84484; 85025; 85610; 86850; 86900; 86901; 93005; 99285-25

== ENCOUNTER 2017-06-21 13:31 | Observation (INO) | payer SELFPAY ==
[2017-06-21] MEDS ORDERED: ASPIRIN 325 MG TABLET PO ONE (13:42)
--- NOTE | 2017-06-21 13:47 | PDOC ---
History of Present Illness - General History Source: Patient Exam Limitations: No Limitations <Jailene Gill - Last Filed: 06/21/17 17:56> <Eloina Fernando - Last Filed: 06/21/17 18:20> - General Chief Complaint: Shortness of Breath Stated Complaint: SOB Time Seen by Provider: 06/21/17 13:41 - History of Present Illness Initial Comments: 06/21/17 13:44 51 yo male with h/o CAD, CABG, etoh abuse and tobacco use here today c/o sob and chest pain. pt was seen for same recently, was supposed to be admitted left AMA , states exertional sob, cough productive yellow phlegm. no f/c chest pain described as a chest tightness. no radiation. no ho pe or dvt. does not notice any leg swelling. no recent travel. h/o etoh abuse. has been treated for withdrawal in the past, last drink was one week ago. only medication is asa. no other complaints. (Jailene Gill) Past History - Past Medical History Anemia: No Asthma: No Cancer: No Cardiac Disorders: Yes (CHD) CVA: No COPD: Yes CHF: No Dementia: No Diabetes: No GI Disorders: Yes Disorders: No HTN: No Hypercholesterolemia: Yes (no medications) Kidney Stones: No Liver Disease: No Psychiatric Problems: Yes (Alcoholism) Seizures: No Thyroid Disease: No - Surgical History Abdominal Surgery: No Appendectomy: No Cardiac Surgery: Yes (OPEN HEART trple by pass in 2008 at [facility]) Cholecystectomy: No Lung Surgery: No Neurologic Surgery: No Orthopedic Surgery: No - Reproductive History Testicular Surgery: No - Suicide/Smoking/Psychosocial Hx Smoking History: Current every day smoker Have you smoked in the past 12 months: Yes Number of Cigarettes Smoked Daily: 40 Cigars Per Day: 0 'Breaking Loose' booklet given: 06/09/17 Hx Alcohol Use: Yes Drug/Substance Use Hx: Yes Substance Use Type: Alcohol Hx Substance Use Treatment: Yes (2006) <Jailene Gill - Last Filed: 06/21/17 17:56> <Eloina Fernando - Last Filed: 06/21/17 18:20> - Past Medical History Allergies/Adverse Reactions: Allergies Allergy/AdvReac Type Severity Reaction Status Date / Time No Known Allergies Allergy Verified 06/21/17 13:33 Home Medications: Ambulatory Orders Aspirin [ASA -] 81 mg PO DAILY 06/21/17 Cardiac Specific PMH - Complaint Specific PMHX Pacemaker: No <Jailene Gill - Last Filed: 06/21/17 17:56> Review of Systems - Review of Systems Constitutional: No: Chills, Diaphoresis, Fever Respiratory: Yes: Cough, Shortness of Breath, Wheezing, Productive cough Cardiac (ROS): Yes: Chest Pain, Chest Tightness. No: Edema, Irregular Heart Rate ABD/GI: No: Abdominal Distended : No: Burning, Dysuria Integumentary: No: Change in Color, Rash, Sweating All Other Systems: Reviewed and Negative <Jailene Gill - Last Filed: 06/21/17 17:56> *Physical Exam - Physical Exam General Appearance: Yes: Appropriately Dressed HEENT: positive: Normal ENT Inspection Neck: positive: Trachea midline Respiratory/Chest: positive: Normal Breath Sounds, Wheezing. negative: Respiratory Distress Cardiovascular: positive: Regular Rhythm, Regular Rate, S1, S2. negative: Edema Gastrointestinal/Abdominal: positive: Normal Bowel Sounds, Flat. negative: Tender Musculoskeletal: positive: Normal Inspection. negative: CVA Tenderness Integumentary: positive: Normal Color, Dry, Warm Neurologic: positive: truck striker II-XII NML intact, Fully Oriented, Alert, Normal Mood/ Affect, Motor Strength 5/5 <Jailene Gill - Last Filed: 06/21/17 17:56> - Vital Signs Last Vital Signs Temp Pulse Resp BP Pulse Ox 98.7 F 71 20 101/67 96 06/21/17 13:32 06/21/17 13:32 06/21/17 13:32 06/21/17 13:32 06/21/17 13:32 Heart Score/ECG Review #1 General ECG Interpretation: Sinus Rhythm, Normal Rate (69), Normal Intervals, No acute ischemic changes <Jailene Gill - Last Filed: 06/21/17 17:56> ED Treatment Course - LABORATORY CBC & Chemistry Diagram: 06/21/17 14:33 06/21/17 14:33 <Jailene Gill - Last Filed: 06/21/17 17:56> - LABORATORY CBC & Chemistry Diagram: 06/21/17 14:33 06/21/17 14:33 <Eloina Fernando - Last Filed: 06/21/17 18:20> - ADDITIONAL ORDERS Additional order review: Laboratory Results 06/21/17 06/21/17 06/21/17 14:33 14:33 14:33 Sodium 134 L Potassium 4.2 Chloride 104 Carbon Dioxide 24 Anion Gap 6 L BUN 9 D Creatinine 0.9 D Creat Clearance w eGFR > 60 Random Glucose 148 H D Calcium 8.6 Total Bilirubin 0.4 D AST 29 D ALT 51 H D Alkaline Phosphatase 101 H D Creatine Kinase Cancelled Troponin I < 0.03 L Cancelled Total Protein 6.6 Albumin 3.2 L Alcohol, Quantitative < 5.0 06/21/17 14:33 RBC 3.67 L MCV 93.9 MCHC 33.1 RDW 15.0 MPV 8.0 Neutrophils % 63.2 Lymphocytes % 26.2 Monocytes % 7.9 Eosinophils % 1.8 D Basophils % 0.9 - Medications Given in the ED: ED Medications Discontinued Medications Generic Name Dose Route Start Last Admin Trade Name Christian PRN Reason Stop Dose Admin Albuterol/Ipratropium 1 amp 06/21/17 13:45 06/21/17 15:27 Duoneb - NEB 06/21/17 14:31 1 amp Q15M JESICA Administration Aspirin 325 mg 06/21/17 13:42 06/21/17 14:51 Asa - PO 06/21/17 13:43 325 mg ONCE ONE Administration Methylprednisolone Sodium Succinate 125 mg 06/21/17 17:39 06/21/17 17:59 Solu-Medrol - IVPB 06/21/17 17:40 125 mg ONCE ONE Administration Medical Decision Making <Jailene Gill - Last Filed: 06/21/17 17:56> <Eloina Fernando - Last Filed: 06/21/17 18:20> - Medical Decision Making 06/21/17 13:46 51 yo male with h/o copd, etoh abuse cad CABG, here with c/o chest pain and sob. cough. differential copd exacerbation. angina, pneumonia, mi. mass. plan cxr labs ekg duoneb, asa, will require tele observation for r/o acs. 06/21/17 17:40 pt wit normal troponin, no acute ekg changs. cxr no acute disease. improved resp wtih nebs . will give steroids for copd exacerbation. and admit to tele observation for copd exacerbation, chest pain r/o acs. (Jailene Gill) 06/21/17 18:09 Dr. Velasco was paged at this time requesting a call back for doctor to doctor consult. 06/21/17 18:20 Dr. Zhou returned the call and the patient's case was discussed. (Eloina Fernando) *DC/Admit/Observation/Transfer - Discharge Dispostion Admit: Yes <Jailene Gill - Last Filed: 06/21/17 17:56> <Eloina Fernando - Last Filed: 06/21/17 18:20> Diagnosis at time of Disposition: COPD (chronic obstructive pulmonary disease) with acute bronchitis, Chest pain in adult - Attestations Scribe Attestion: 06/21/17 18:13 Documentation prepared by Eloina Fernando, acting as medical assistant cardiology for Jailene Gill MD, (Eloina Fernando)
[2017-06-21 14:07] VITALS: BMI 25.8
[2017-06-21] MEDS ORDERED: ASPIRIN 325 MG TABLET ONE (14:48)
[2017-06-21] MEDS ORDERED: ALBUTEROL SO4 2.5/IPRATROPIUM 0.5 INH SOL 3 ML VIAL.NEB. NEB ONE ×2 (14:48→15:10)
[2017-06-21] MEDS: ALBUTEROL SO4 2.5/IPRATROPIUM 0.5 INH SOL 3 ML VIAL.NEB. NEB SCH ×3 (14:52→15:27)
[2017-06-21 14:56] LABS: BASOPHIL 0.9 % (0-2.0); EOSINOPHIL 1.8 % (0-4.5); MCH 31.1 pg (25.7-33.7); MCHC 33.1 g/dl (32.0-35.9); MEAN CELL VOLUME 93.9 fl (80-96); NEUTROPHILS 63.2 % (42.8-82.8); PLATELET COUNT 557 K/MM3 (134-434); WHITE BLOOD COUNT 6.7 K/mm3 (4.0-10.8)
[2017-06-21 15:07] LABS: ALBUMIN 3.2 g/dl (3.5-5.0); ALK PHOS 101 U/L (32-92); ANION GAP 6 (8-16); BILIRUBIN,TOTAL 0.4 mg/dl (0.2-1.0); CALCIUM 8.6 mg/dl (8.4-10.2); CO2 24 mmol/L (22-28); CREATININE 0.9 mg/dl (0.6-1.3); GLUCOSE,RANDOM 148 mg/dl (74-106); SGOT/AST 29 U/L (10-42); SGPT/ALT 51 U/L (10-40); TOT PROT 6.6 g/dl (6.4-8.3)
[2017-06-21] MEDS ORDERED: methylPREDNISolone NA SUCC 125 MG/2 ML VIAL IVPB ONE (17:39)
[2017-06-21] MEDS ORDERED: methylPREDNISolone NA SUCC 125 MG/2 ML VIAL ONE (17:51)
--- NOTE | 2017-06-21 19:35 | EKG ---
Test Reason : Blood Pressure : / mmHG Vent. Rate : 069 BPM Atrial Rate : 069 BPM P-R Int : 150 ms QRS Dur : 090 ms QT Int : 394 ms P-R-T Axes : 069 009 008 degrees QTc Int : 422 ms NORMAL SINUS RHYTHM NONSPECIFIC T WAVE ABNORMALITY ABNORMAL ECG WHEN COMPARED WITH ECG OF 16-JUN-2017 12:50, NONSPECIFIC T WAVE ABNORMALITY NOW EVIDENT IN LATERAL LEADS Confirmed by FROILAN JIMENEZ MD ([id number]) on 06/21/2017 7:34:59 PM Referred By: DAVID ROBLES Confirmed By:FROILAN JIMENEZ MD
[2017-06-21 21:44] LABS: CPK 59 IU/L (39-308)
[2017-06-21 21:57] LABS: TROPONIN I (DFP) < 0.03 ng/ml (0.03-0.50)
[2017-06-21] MEDS: NICOTINE 21 MG/24 HOURS TOPICAL PATCH TD SCH (22:03)
--- NOTE | 2017-06-21 22:27 | HP ---
CHIEF COMPLAINT: CP, SOB PCP: none HISTORY OF PRESENT ILLNESS: This is a 51 year old male with a significant past medical history of CAD s/p CABG, HLD who presented to the ED with CP and SOBE for about 1 week. He states it is difficult for him to walk more than 1/2 a block because he becomes SOB and develops pain in his calves. He states that he hasn't had any chest pain in a "couple of days". Pt was seen for similar complaints on 06/16 and was advised to be admitted but signed out AMA. ER course was notable for: (1) troponin neg x 1 (2) CXR without acute infiltrate or effusion (3) breathing improved s/p duoneb and solumedrol Recent Travel: pt denies PAST MEDICAL HISTORY: CAD HLD psoriasis abdominal aneurysm PAST SURGICAL HISTORY: 3v CABG 2008 Social History: Smokin ppd Alcohol: quit 1 week ago Drugs: pt denies Family History: mother alive with alzheimers disease father , abdominal aneurysm 4 brothers and 2 sisters, all alive and well 6 children without medical problems Allergies No Known Allergies Allergy (Verified 06/21/17 13:33) HOME MEDICATIONS: 3 Medication Instructions Recorded Aspirin [ASA -] 81 mg PO DAILY 06/21/17 REVIEW OF SYSTEMS CONSTITUTIONAL: Absent: fever, chills, diaphoresis, generalized weakness, malaise, loss of appetite, weight change HEENT: Absent: rhinorrhea, nasal congestion, throat pain, throat swelling, difficulty swallowing, mouth swelling, ear pain, eye pain, visual changes CARDIOVASCULAR: Present: chest pain Absent: syncope, palpitations, irregular heart rate, lightheadedness, peripheral edema RESPIRATORY: Present: shortness of breath, dyspnea with exertion Absent: cough, orthopnea, wheezing, stridor, hemoptysis GASTROINTESTINAL: Absent: abdominal pain, abdominal distension, nausea, vomiting, diarrhea, constipation, melena, hematochezia GENITOURINARY: Absent: dysuria, frequency, urgency, hesitancy, hematuria, flank pain, genital pain MUSCULOSKELETAL: Absent: myalgia, arthralgia, joint swelling, back pain, neck pain SKIN: Absent: rash, itching, pallor HEMATOLOGIC/IMMUNOLOGIC: Absent: easy bleeding, easy bruising, lymphadenopathy, frequent infections ENDOCRINE: Absent: unexplained weight gain, unexplained weight loss, heat intolerance, cold intolerance NEUROLOGIC: Absent: headache, focal weakness or paresthesias, dizziness, unsteady gait, seizure, mental status changes, bladder or bowel incontinence PSYCHIATRIC: Absent: anxiety, depression, suicidal or homicidal ideation, hallucinations. PHYSICAL EXAMINATION Vital Signs - 24 hr 3 06/21/17 06/21/17 06/21/17 13:32 18:23 19:23 Temperature 98.7 F 98.7 F 98.3 F Pulse Rate 71 71 62 Respiratory 20 20 18 Rate Blood Pressure 101/67 101/67 107/64 O2 Sat by Pulse 96 96 98 Oximetry (%) GENERAL: Awake, alert, and fully oriented, in no acute distress. HEAD: Normal with no signs of trauma. EYES: Pupils equal, round and reactive to light, extraocular movements intact, sclera anicteric, conjunctiva clear. No lid lag. EARS, NOSE, THROAT: Ears normal, nares patent, oropharynx clear without exudates. Moist mucous membranes. NECK: Normal range of motion, supple without lymphadenopathy, JVD, or masses. LUNGS: Breath sounds equal, clear to auscultation bilaterally. No wheezes, and no crackles. No accessory muscle use. HEART: Regular rate and rhythm, normal S1 and S2 without murmur, rub or gallop. ABDOMEN: Soft, nontender, not distended, normoactive bowel sounds, no guarding, no rebound, no masses. No hepatomegaly or splenomegaly. MUSCULOSKELETAL: Normal range of motion at all joints. No bony deformities or tenderness. No CVA tenderness. UPPER EXTREMITIES: 2+ pulses, warm, well-perfused. No cyanosis. No clubbing. No peripheral edema. LOWER EXTREMITIES: 2+ pulses, warm, well-perfused. No calf tenderness. No peripheral edema. NEUROLOGICAL: Cranial nerves II-XII intact. Normal speech. Normal gait. PSYCHIATRIC: Cooperative. Good eye contact. Appropriate mood and affect. SKIN: Warm, dry, normal turgor, no rashes or lesions noted, normal capillary refill. Laboratory Results - last 24 hr 3 06/21/17 06/21/17 06/21/17 06/21/17 14:33 14:33 14:33 21:00 WBC 6.7 D RBC 3.67 L Hgb 11.4 L D Hct 34.5 L MCV 93.9 MCH 31.1 MCHC 33.1 RDW 15.0 Plt Count 557 H D MPV 8.0 Neutrophils % 63.2 Lymphocytes % 26.2 Monocytes % 7.9 Eosinophils % 1.8 D Basophils % 0.9 Sodium 134 L Potassium 4.2 Chloride 104 Carbon Dioxide 24 Anion Gap 6 L BUN 9 D Creatinine 0.9 D Creat Clearance w eGFR > 60 Random Glucose 148 H D Calcium 8.6 Total Bilirubin 0.4 D AST 29 D ALT 51 H D Alkaline Phosphatase 101 H D Creatine Kinase Cancelled 59 Troponin I Cancelled < 0.03 L < 0.03 L Total Protein 6.6 Albumin 3.2 L Alcohol, Quantitative < 5.0 Radiology Results: Chest CLINICAL: Cough There has been no significant change from previous examinations of May 2017. PA and lateral views of the chest reveal the heart to be normal in size and contour. The patient is status post sternal thoracotomy. There is no evidence of infiltrate or congestive changes. There is no evidence of mediastinal masses or hilar adenopathy. Metallic densities are noted in the left upper quadrant. The visualized osseous and soft tissue structures are unremarkable. IMPRESSION: No evidence of acute cardiopulmonary disease Status post sternal thoracotomy Reported By: William Art MD 06/21/17 1423 06/16/17: CT scan of the chest following intravenous contrast. A post intravenous contrast CT angiogram of the chest was performed utilizing pulmonary embolus protocol. Coronal/ sagittal reconstruction images were obtained. 100 cc of Omnipaque 350 was intravenously injected Compared to prior chest x-ray dated 06/16/2017. No prior CT scan of the chest is available for comparison. No gross filling defect is seen within the main pulmonary artery and its proximal branches. The thoracic and visualized portion of the upper abdominal aorta is normally enhanced without evidence of aneurysmal dilatation or dissection. The heart is within normal limits in size. No gross enlarged mediastinal lymph nodes are identified. There are a few right hilar lymph nodes with the largest measuring 1.4 cm. Left hilum is not enlarged. Tiny pleural-based nodule in the left lung base, posteriorly/ laterally measuring 2 mm on axial # 77. No other pulmonary nodules or focal infiltrates are identified. No pneumothorax or pleural effusion is seen, bilaterally. In included portion of the upper abdomen, there are multiple surgical metallic clips in the left upper quadrant with suggestion of prior splenic surgery. Multilobulated masslike densities are present in the left upper quadrant suggestive of postop residual spleen and splenule is. Correlate clinically. Comparison with prior CT scan of the abdomen if possible would be helpful. Visualized osseous structures appear intact. Normal alignment of the thoracic spine with multilevel mild degenerative disc disease. Status post median sternotomy sutures are present. IMPRESSION: There is no gross evidence of a pulmonary embolus within the main pulmonary artery and its proximal branches, bilaterally. Normal enhancement of the thoracic and abdominal aorta. Splenic postop changes with likely accessory spleens in the left upper quadrant. Reported By: Elizabet Noyola MD 06/16/17 1538 ECG Normal Sinus rhythm Vent rate 69, QTC 422 Nonspecific T wave abnormality, new in lateral leads when compared w/ ECG ASSESSMENT/PLAN: 51yM with PMH CAD s/p CABG, HLD, COPD, psoriasis, abdominal aneurysm presented to the ED with SOBE and CP x 1-2 weeks. CP r/o ACS - trend troponin, neg x 2 - echo in am - cardiac monitoring - cardiology consult given CAD history and off all meds - will need stress testing outpatient vs inpatient. HLD - lipid panel in am COPD exac - solumedrol 40mg Q8H, taper as tolerated - duoneb - will need outpatient pulmonology f/u nicotine dependence - nicotine patch 21mg - nicotine gum 2mg PRN Recent alcohol abuse/dependence - monitor for s/s withdrawal and initiate librium promptly. DVT PPX - deferred as pt fully ambulatory and expected LOS <48h FEN - tolerating po - repeat bmp in am - regular diet in am Dispo: Pt currently requires inpatient monitoring for management of his emergent condition. Visit type - Emergency Visit Emergency Visit: Yes ED Registration Date: 06/21/17 Care time: The patient presented to the Emergency Department on the above date and was hospitalized for further evaluation of their emergent condition. - New Patient This patient is new to me today: Yes Date on this admission: 06/21/17 - Critical Care Critical Care patient: No
[2017-06-21] MEDS: NICOTINE POLACRILEX 2 MG GUM BUC PRN (23:57)
[2017-06-22] MEDS: methylPREDNISolone NA SUCC 40 MG/1 ML VIAL IVPB SCH ×3 (01:47→18:20)
--- NOTE | 2017-06-22 08:25 | PN ---
Physical Exam: SUBJECTIVE: Patient seen and examined, report non radiating chest pressure OBJECTIVE:This is a 51 year old male with a significant past medical history of CAD s/p CABG, and HLD. patient was admitted from the emergency department to observation, for chest pain r/o acs. Vital Signs Period Temp Pulse Resp BP Sys/Abernathy Pulse Ox Last 24 Hr 97.6 F-98.3 F 62-65 17-18 107-125/64-80 18-98 GENERAL: The patient is awake, alert, and fully oriented, in no acute distress. HEAD: Normal with no signs of trauma. EYES: PERRL, extraocular movements intact, sclera anicteric, conjunctiva clear. No ptosis. ENT: Ears normal, nares patent, oropharynx clear without exudates, moist mucous membranes. NECK: Trachea midline, full range of motion, supple. LUNGS: Breath sounds equal, clear to auscultation bilaterally, no wheezes, no crackles, no accessory muscle use. HEART: Regular rate and rhythm, S1, S2 without murmur, rub or gallop. ABDOMEN: Soft, nontender, nondistended, normoactive bowel sounds, no guarding, no rebound, no hepatosplenomegaly, no masses. EXTREMITIES: 2+ pulses, warm, well-perfused, no edema. NEUROLOGICAL: Cranial nerves II through XII grossly intact. Normal speech, gait not observed. PSYCH: Normal mood, normal affect. SKIN: Warm, dry, normal turgor, no rashes or lesions noted Laboratory Results - last 24 hr 06/21/17 21:00 Creatine Kinase 59 Troponin I < 0.03 L CBC WBC 9.2 K/mm3 (4.0-10.8) D 06/22/17 07:00 RBC 3.91 M/mm3 (4.00-5.60) L 06/22/17 07:00 Hgb 11.9 GM/dl (11.7-16.9) 06/22/17 07:00 Hct 36.6 % (35.4-49) 06/22/17 07:00 MCV 93.7 fl (80-96) 06/22/17 07:00 MCH 30.5 pg (25.7-33.7) 06/22/17 07:00 MCHC 32.5 g/dl (32.0-35.9) 06/22/17 07:00 RDW 15.1 % (11.9-15.9) 06/22/17 07:00 Plt Count 676 K/MM3 (134-434) H D 06/22/17 07:00 MPV 8.1 fl (7.5-11.1) 06/22/17 07:00 Neutrophils % 87.5 % (42.8-82.8) H D 06/22/17 07:00 Lymphocytes % 10.6 % (8-40) D 06/22/17 07:00 Monocytes % 1.4 % (3.8-10.2) L D 06/22/17 07:00 Eosinophils % 0.1 % (0-4.5) D 06/22/17 07:00 Basophils % 0.4 % (0-2.0) 06/22/17 07:00 CMP Sodium 136 mmol/L (136-145) 06/22/17 07:00 Potassium 4.5 mmol/L (3.5-5.1) 06/22/17 07:00 Chloride 107 mmol/L (98-107) 06/22/17 07:00 Carbon Dioxide 23 mmol/L (22-28) 06/22/17 07:00 Anion Gap 6 (8-16) L 06/22/17 07:00 BUN 10 mg/dl (7-18) 06/22/17 07:00 Creatinine 0.6 mg/dl (0.6-1.3) D 06/22/17 07:00 Creat Clearance w eGFR > 60 (>60) 06/21/17 14:33 Random Glucose 161 mg/dl (74-106) H 06/22/17 07:00 Calcium 9.0 mg/dl (8.4-10.2) 06/22/17 07:00 Phosphorus 2.8 mg/dl (2.5-4.6) 06/22/17 07:00 Magnesium 2.6 mg/dL (1.8-2.4) H 06/22/17 07:00 Total Bilirubin 0.4 mg/dl (0.2-1.0) D 06/21/17 14:33 AST 29 U/L (10-42) D 06/21/17 14:33 ALT 51 U/L (10-40) H D 06/21/17 14:33 Alkaline Phosphatase 101 U/L (32-92) H D 06/21/17 14:33 Creatine Kinase 53 IU/L (39-308) 06/22/17 07:00 Troponin I < 0.03 ng/ml (0.03-0.50) L 06/22/17 07:00 Total Protein 6.6 g/dl (6.4-8.3) 06/21/17 14:33 Albumin 3.2 g/dl (3.5-5.0) L 06/21/17 14:33 Triglycerides 72 mg/dl (35-160) 06/22/17 07:00 Cholesterol 232 mg/dl 06/22/17 07:00 Total LDL Cholesterol 188 mg/dl 06/22/17 07:00 HDL Cholesterol 30 mg/dl (29-89) 06/22/17 07:00 Laboratory Tests 06/21/17 06/21/17 06/22/17 14:33 21:00 07:00 Troponin I < 0.03 L < 0.03 L < 0.03 L Active Medications Generic Name Dose Route Start Last Admin Trade Name Freq PRN Reason Stop Dose Admin Aspirin 81 mg 06/22/17 10:00 Asa - PO DAILY JESICA Methylprednisolone Sodium Succinate 40 mg 06/22/17 02:00 06/22/17 01:47 Solu-Medrol - IVPB 40 mg Q8H-IV JESICA Administration Nicotine 21 mg 06/21/17 21:45 06/21/17 22:03 Nicoderm Patch - TD 21 mg DAILY JESICA Administration Nicotine Polacrilex 2 mg 06/21/17 21:40 06/21/17 23:57 Nicorette Gum - BUC 2 mg Q2H PRN Administration NICOTINE REPLACEMENT RX Radiology Results: chest xray: IMPRESSION: No evidence of acute cardiopulmonary disease Status post sternal thoracotomy Reported By: William Art MD 06/21/17 7797 06/16/17: CT scan of the chest following intravenous contrast IMPRESSION: There is no gross evidence of a pulmonary embolus within the main pulmonary artery and its proximal branches, bilaterally. Normal enhancement of the thoracic and abdominal aorta. Splenic postop changes with likely accessory spleens in the left upper quadrant. Reported By: Elizabet Noyola MD 06/16/17 7266 ECG Normal Sinus rhythm Vent rate 69, QTC 422 Nonspecific T wave abnormality, new in lateral leads when compared w/ ECG ASSESSMENT/PLAN: 1) card chest pain r/o ACS - troponin, neg x 3 - pending echo - pt reports MARIE and chest pressure at rest, symptoms concerning for unstable angina, perscantine stress test ordered - case discussed with Dr Zhou, [employer], will evaluate patient today HLD - lipid panel noted, will start lipitor 2) pulm COPD exac - no wheezing noted on exam continue solumedrol 40mg Q8H with appropriate taper as tolerated - continue duoneb - will need outpatient pulmonology f/u 3) psych nicotine dependence - nicotine patch 21mg and nicotine gum 2mg PRN Recent alcohol abuse/dependence - monitor for s/s withdrawal and initiate librium promptly. DVT PPX - deferred as pt fully ambulatory and expected LOS <48h FEN - tolerating po - repeat bmp in am - regular diet in am Dispo: Pt currently requires inpatient monitoring for management of his emergent condition. Visit type - Emergency Visit Emergency Visit: Yes ED Registration Date: 06/21/17 Care time: The patient presented to the Emergency Department on the above date and was hospitalized for further evaluation of their emergent condition. - New Patient This patient is new to me today: Yes Date on this admission: 06/22/17 - Critical Care Critical Care patient: No - Discharge Referral Referred to [facility] Med P.C.: No
[2017-06-22 08:42] LABS: ANION GAP 6 (8-16); CO2 23 mmol/L (22-28); CREATININE 0.6 mg/dl (0.6-1.3); GLUCOSE,RANDOM 161 mg/dl (74-106); MAGNESIUM 2.6 mg/dL (1.8-2.4); PHOSPHOROUS 2.8 mg/dl (2.5-4.6)
[2017-06-22 08:47] LABS: CHOLESTEROL 232 mg/dl; CPK 53 IU/L (39-308)
[2017-06-22 08:58] LABS: BASOPHIL 0.4 % (0-2.0); EOSINOPHIL 0.1 % (0-4.5); MCH 30.5 pg (25.7-33.7); MCHC 32.5 g/dl (32.0-35.9); MEAN CELL VOLUME 93.7 fl (80-96); NEUTROPHILS 87.5 % (42.8-82.8); RDW 15.1 % (11.9-15.9); WHITE BLOOD COUNT 9.2 K/mm3 (4.0-10.8)
[2017-06-22] MEDS ORDERED: PT OWN MED DRAWER 7, Y5N ONE (09:20)
[2017-06-22 09:26] LABS: TROPONIN I (DFP) < 0.03 ng/ml (0.03-0.50)
[2017-06-22] MEDS: ASPIRIN 81 MG CHEWABLE TABLETS PO SCH (09:30)
[2017-06-22] MEDS: NICOTINE 21 MG/24 HOURS TOPICAL PATCH TD SCH (09:30)
[2017-06-22] MEDS: NICOTINE POLACRILEX 2 MG GUM BUC PRN ×2 (09:31→19:09)
[2017-06-22] MEDS ORDERED: NICOTINE 21 MG/24 HOURS TOPICAL PATCH TD SCH (10:00)
[2017-06-22] MEDS ORDERED: DIPYRIDAMOLE STRESS TEST 41.5 MG in DEXTROSE 5%-WATER - 33.2 ML IVPB ONE (10:00)
[2017-06-22 12:12] LABS: MEAN PLT VOLUME 8.1 fl (7.5-11.1)
[2017-06-22 12:13] LABS: PLATELET COUNT 676 K/MM3 (134-434)
--- NOTE | 2017-06-22 12:49 | CON.CARD ---
Cardiology Consult (text) - Consultation Consultation Note: cc: sob hpi: 51 m hx cad s/p cabg 2009, hld, tob use, etoh abuse, copd here with sob. Past few days with sob, coughing, chest tightness with coughing. No palps, dizzy, loc, pnd, orthopnea, le edema. Occasional claudication type sxs for years. Admitted for tx of copd, on steroids now. Has not followed with pmd or cardio for years. pmh: per hpi psh: cabg social: +tob, +etoh abuse ros: per hpi; no nvd fever, muscle pain, gib, hematuria, dysuria, +cough, no puckett , no vision changes fam: no premature cad, scd meds: Home Medications Medication Instructions Recorded Aspirin [ASA -] 81 mg PO DAILY 06/21/17 pe: Vital Signs Period Temp Pulse Resp BP Sys/Abernathy Pulse Ox Last 24 Hr 97.6 F-98.7 F 62-71 17-20 101-126/64-80 18-98 nad no jvd rrr s1s2 no mrg b/l wheezing, nl eff abd nt nd pos bs no jaundice diaphoresis +dp pt no carotid bruits aaox3 no le e/c/c Laboratory Last Values WBC 9.2 K/mm3 (4.0-10.8) D 06/22/17 07:00 RBC 3.91 M/mm3 (4.00-5.60) L 06/22/17 07:00 Hgb 11.9 GM/dl (11.7-16.9) 06/22/17 07:00 Hct 36.6 % (35.4-49) 06/22/17 07:00 MCV 93.7 fl (80-96) 06/22/17 07:00 MCH 30.5 pg (25.7-33.7) 06/22/17 07:00 MCHC 32.5 g/dl (32.0-35.9) 06/22/17 07:00 RDW 15.1 % (11.9-15.9) 06/22/17 07:00 Plt Count 676 K/MM3 (134-434) H D 06/22/17 07:00 MPV 8.1 fl (7.5-11.1) 06/22/17 07:00 Neutrophils % 87.5 % (42.8-82.8) H D 06/22/17 07:00 Lymphocytes % 10.6 % (8-40) D 06/22/17 07:00 Monocytes % 1.4 % (3.8-10.2) L D 06/22/17 07:00 Eosinophils % 0.1 % (0-4.5) D 06/22/17 07:00 Basophils % 0.4 % (0-2.0) 06/22/17 07:00 Sodium 136 mmol/L (136-145) 06/22/17 07:00 Potassium 4.5 mmol/L (3.5-5.1) 06/22/17 07:00 Chloride 107 mmol/L (98-107) 06/22/17 07:00 Carbon Dioxide 23 mmol/L (22-28) 06/22/17 07:00 Anion Gap 6 (8-16) L 06/22/17 07:00 BUN 10 mg/dl (7-18) 06/22/17 07:00 Creatinine 0.6 mg/dl (0.6-1.3) D 06/22/17 07:00 Creat Clearance w eGFR > 60 (>60) 06/21/17 14:33 Random Glucose 161 mg/dl (74-106) H 06/22/17 07:00 Calcium 9.0 mg/dl (8.4-10.2) 06/22/17 07:00 Phosphorus 2.8 mg/dl (2.5-4.6) 06/22/17 07:00 Magnesium 2.6 mg/dL (1.8-2.4) H 06/22/17 07:00 Total Bilirubin 0.4 mg/dl (0.2-1.0) D 06/21/17 14:33 AST 29 U/L (10-42) D 06/21/17 14:33 ALT 51 U/L (10-40) H D 06/21/17 14:33 Alkaline Phosphatase 101 U/L (32-92) H D 06/21/17 14:33 Creatine Kinase 53 IU/L (39-308) 06/22/17 07:00 Troponin I < 0.03 ng/ml (0.03-0.50) L 06/22/17 07:00 Total Protein 6.6 g/dl (6.4-8.3) 06/21/17 14:33 Albumin 3.2 g/dl (3.5-5.0) L 06/21/17 14:33 Triglycerides 72 mg/dl (35-160) 06/22/17 07:00 Cholesterol 232 mg/dl 06/22/17 07:00 Total LDL Cholesterol 188 mg/dl 06/22/17 07:00 HDL Cholesterol 30 mg/dl (29-89) 06/22/17 07:00 Alcohol, Quantitative < 5.0 mg/dl (0-5) 06/21/17 14:33 cxr: clear lungs ecg 06/21/17: sr, nl intervals, no ischemic changes a/p: 51 m hx cad s/p cabg 2008, hld, tob use, etoh abuse, copd here with sob. cp, sob, copd: -ce's negx3, no ischemic ecg changes, no signs acs -wheezing on exam, no signs chf, current sxs seem more related to copd -will check echo to see lvef, nuclear stress test to look for ischemia -cont tx copd per pmd cad s/p cabg: -as above -cont statin, asa hld: -cont statin tob, etoh use: -cessation counseling possible claudication: -chronic for years, outpt pvr testing if echo and nuclear stress test benign ok for dc from cardiac pov
[2017-06-22] MEDS ORDERED: ATORVASTATIN CA 40 MG TABLET (FP) PO SCH (22:00)
[2017-06-23] MEDS: methylPREDNISolone NA SUCC 40 MG/1 ML VIAL IVPB SCH ×2 (01:39→09:42)
[2017-06-23 05:52] VITALS: BP 100/47; PULSE 57; TEMP 98
[2017-06-23] MEDS: ASPIRIN 81 MG CHEWABLE TABLETS PO SCH (09:42)
[2017-06-23] MEDS: NICOTINE 21 MG/24 HOURS TOPICAL PATCH TD SCH (09:42)
--- NOTE | 2017-06-23 09:51 | DS ---
Physical Exam: SUBJECTIVE: Patient seen and examined, reports feeling better, denies any chest pain or shortness OBJECTIVE: Vital Signs Period Temp Pulse Resp BP Sys/Abernathy Pulse Ox Last 24 Hr 97.9 F-98.1 F 57-80 18-20 100-126/47-86 93-96 PHYSICAL EXAM GENERAL: The patient is awake, alert, and fully oriented, in no acute distress. HEAD: Normal with no signs of trauma. EYES: PERRL, extraocular movements intact, sclera anicteric, conjunctiva clear. ENT: Ears normal, nares patent, oropharynx clear without exudates, moist mucous membranes. NECK: Trachea midline, full range of motion, supple. LUNGS: Breath sounds equal, clear to auscultation bilaterally, no wheezes, no crackles, no accessory muscle use. HEART: Regular rate and rhythm, S1, S2 without murmur, rub or gallop. ABDOMEN: Soft, nontender, nondistended, normoactive bowel sounds, no guarding, no rebound, no hepatosplenomegaly, no masses. EXTREMITIES: 2+ pulses, warm, well-perfused, no edema. NEUROLOGICAL: Cranial nerves II through XII grossly intact. Normal speech, gait not observed. PSYCH: Normal mood, normal affect. SKIN: Warm, dry, normal turgor, no rashes or lesions noted. LABS Laboratory Results - last 24 hr 06/22/17 07:00 WBC 9.2 D RBC 3.91 L Hgb 11.9 Hct 36.6 MCV 93.7 MCH 30.5 MCHC 32.5 RDW 15.1 Plt Count 676 H D MPV 8.1 Neutrophils % 87.5 H D Lymphocytes % 10.6 D Monocytes % 1.4 L D Eosinophils % 0.1 D Basophils % 0.4 CMP Sodium 136 mmol/L (136-145) 06/22/17 07:00 Potassium 4.5 mmol/L (3.5-5.1) 06/22/17 07:00 Chloride 107 mmol/L (98-107) 06/22/17 07:00 Carbon Dioxide 23 mmol/L (22-28) 06/22/17 07:00 Anion Gap 6 (8-16) L 06/22/17 07:00 BUN 10 mg/dl (7-18) 06/22/17 07:00 Creatinine 0.6 mg/dl (0.6-1.3) D 06/22/17 07:00 Creat Clearance w eGFR > 60 (>60) 06/21/17 14:33 Random Glucose 161 mg/dl (74-106) H 06/22/17 07:00 Calcium 9.0 mg/dl (8.4-10.2) 06/22/17 07:00 Phosphorus 2.8 mg/dl (2.5-4.6) 06/22/17 07:00 Magnesium 2.6 mg/dL (1.8-2.4) H 06/22/17 07:00 Total Bilirubin 0.4 mg/dl (0.2-1.0) D 06/21/17 14:33 AST 29 U/L (10-42) D 06/21/17 14:33 ALT 51 U/L (10-40) H D 06/21/17 14:33 Alkaline Phosphatase 101 U/L (32-92) H D 06/21/17 14:33 Creatine Kinase 53 IU/L (39-308) 06/22/17 07:00 Troponin I < 0.03 ng/ml (0.03-0.50) L 06/22/17 07:00 Total Protein 6.6 g/dl (6.4-8.3) 06/21/17 14:33 Albumin 3.2 g/dl (3.5-5.0) L 06/21/17 14:33 Triglycerides 72 mg/dl (35-160) 06/22/17 07:00 Cholesterol 232 mg/dl 06/22/17 07:00 Total LDL Cholesterol 188 mg/dl 06/22/17 07:00 HDL Cholesterol 30 mg/dl (29-89) 06/22/17 07:00 Laboratory Tests 06/21/17 06/21/17 06/22/17 14:33 21:00 07:00 Troponin I < 0.03 L < 0.03 L < 0.03 L HOSPITAL COURSE: Date of Admission:06/21/17 Date of Discharge: 06/23/17 Minutes to complete discharge: 45 Discharge Summary Reason For Visit: copd witha acute broncitis Current Active Problems COPD (chronic obstructive pulmonary disease) with acute bronchitis (Acute) Chest pain in adult (Acute) - Home Medications Comprehensive Discharge Medication List: Ambulatory Orders Aspirin [ASA -] 81 mg PO DAILY 06/21/17 - Discharge Referral Referred to [facility] Med P.C.: No
== END 2017-06-23 11:45 | disposition home or self-care (01) ==
LOC: FER 13:31 → FM/S 18:23
PROVIDERS: ADMIT Internal Medicine; ATTEND Nurse Practitioner Family
PROC: 3E033NZ Introduction of Analgesics, Hypnotics, Sedatives into Peripheral Vein, Percutaneous Approach (ICD-10-PCS; principal; 2017-06-21)
PROC: 3E0F7GC Introduction of Other Therapeutic Substance into Respiratory Tract, Via Natural or Artificial Opening (ICD-10-PCS; 2017-06-21)
DX: J44.9 Chronic obstructive pulmonary disease, unspecified (principal); J20.9 Acute bronchitis, unspecified; R07.9 Chest pain, unspecified; I25.10 Atherosclerotic heart disease of native coronary artery without angina pectoris; F10.10 Alcohol abuse, uncomplicated; F17.210 Nicotine dependence, cigarettes, uncomplicated; Z95.1 Presence of aortocoronary bypass graft; Z79.82 Long term (current) use of aspirin
CPT/HCPCS: 36415; 71020-TC; 78452-TC; 80048; 80053; 80061; 80307; 83735; 84100; 84484; 85025; 93005; 93017; 93306-TC; 99282-25; A9502; G0378

== ENCOUNTER 2018-07-01 20:53 | Emergency (ER) | payer OTHER ==
[2018-07-01 21:22] VITALS: BP 131/81; PULSE 63
[2018-07-01] MEDS ORDERED: METOCLOPRAMIDE HCL INJECTION 10 MG/2 ML VIAL IVPUSH ONE (22:05)
[2018-07-01] MEDS ORDERED: ACETAMINOPHEN 325 MG TABLET (FP) PO ONE (22:05)
[2018-07-01] MEDS ORDERED: SODIUM CHLORIDE 0.9% 1000 ML INFUS.BAG IV ONE (22:05)
--- NOTE | 2018-07-01 22:08 | PDOC ---
History of Present Illness - General History Source: Patient Exam Limitations: No Limitations - History of Present Illness Initial Comments: 07/01/18 22:16 The patient is a 52-year-old male with past medical history significant for CAD s/p CABG (2008), and HLD presents to the emergency department with a headache. The patient reports hes been having constant pain to the frontal region that radiates to the sides for the last couple of weeks, associated with nasal dripping and blurry vision (in the morning). The patient reports the pain is aggravated with leaning forward and stress. Denies prior similar pain. The patient reports he suffered a fall about 3 months prior, reports following up but denies having any images done. Denies nausea, vomiting or diplopia. Allergies: NKA Social history: Current everyday smoker, ETOH abuse, with prior detox admission. Oxycodone use reported. PCP: Dr. braden <Kerry Tran - Last Filed: 07/01/18 22:45> - General History Source: Patient Exam Limitations: No Limitations <Jailene Gill - Last Filed: 07/01/18 23:36> - General Chief Complaint: Pain, Acute Stated Complaint: HEAD PAIN X ONE WEEK Time Seen by Provider: 07/01/18 21:07 Past History <Kerry Tran - Last Filed: 07/01/18 22:45> - Past Medical History Anemia: No Asthma: No Cancer: No Cardiac Disorders: Yes (CHD) CVA: No COPD: Yes CHF: No Dementia: No Diabetes: No GI Disorders: Yes Disorders: No HTN: No Hypercholesterolemia: Yes (no medications) Kidney Stones: No Liver Disease: No Psychiatric Problems: Yes (Alcoholism) Seizures: No Thyroid Disease: No - Surgical History Abdominal Surgery: No Appendectomy: No Cardiac Surgery: Yes (OPEN HEART trple by pass in 2008 at [facility]) Cholecystectomy: No Lung Surgery: No Neurologic Surgery: No Orthopedic Surgery: No - Reproductive History Testicular Surgery: No - Suicide/Smoking/Psychosocial Hx Smoking History: Current every day smoker Have you smoked in the past 12 months: Yes Number of Cigarettes Smoked Daily: 40 Cigars Per Day: 0 Information on smoking cessation initiated: Yes 'Breaking Loose' booklet given: 07/01/18 Hx Alcohol Use: No Drug/Substance Use Hx: No Substance Use Type: Alcohol Hx Substance Use Treatment: Yes (2006) <Jailene Gill - Last Filed: 07/01/18 23:36> - Past Medical History Allergies/Adverse Reactions: Allergies Allergy/AdvReac Type Severity Reaction Status Date / Time No Known Allergies Allergy Verified 07/01/18 20:59 Home Medications: Ambulatory Orders Aspirin [ASA -] 81 mg PO DAILY 06/21/17 Albuterol Sulfate Inhaler - [Ventolin HFA Inhaler -] 2 inh PO Q4H PRN #1 inh Atorvastatin Ca [Lipitor] 40 mg PO HS #30 tablet 06/23/17 predniSONE [Deltasone -] 5 mg PO ASDIR #32 tab 06/23/17 Cetirizine HCl [Zyrtec -] 10 mg PO DAILY #30 tablet 07/01/18 Fluticasone Prop 0.05% Nasal [Flonase -] 1 spray NS DAILY #1 bot 07/01/18 Review of Systems - Review of Systems Comments:: 07/01/18 22:17 GENERAL/CONSTITUTIONAL: No fever or chills. No weakness. HEAD, EYES, EARS, NOSE AND THROAT: No change in vision. No ear pain or discharge. No sore throat. CARDIOVASCULAR: No chest pain or shortness of breath. RESPIRATORY: No cough, wheezing, or hemoptysis. GASTROINTESTINAL: No nausea, vomiting, diarrhea or constipation. GENITOURINARY: No dysuria, frequency, or change in urination. MUSCULOSKELETAL: No joint or muscle swelling or pain. No neck or back pain. SKIN: No rash NEUROLOGIC: (+) frontal headache that radiates to the sides. No vertigo, loss of consciousness, or change in strength/sensation. ENDOCRINE: No increased thirst. No abnormal weight change. HEMATOLOGIC/LYMPHATIC: No anemia, easy bleeding, or history of blood clots. ALLERGIC/IMMUNOLOGIC: No hives or skin allergy. <Kerry Tran - Last Filed: 07/01/18 22:45> *Physical Exam - Vital Signs Last Vital Signs Temp Pulse Resp BP Pulse Ox 63 20 131/81 95 07/01/18 21:01 07/01/18 21:01 07/01/18 21:01 07/01/18 21:01 - Physical Exam Comments: 07/01/18 22:45 GENERAL: Awake, alert, and fully oriented, in no acute distress HEAD: No signs of trauma EYES: PERRLA, EOMI, sclera anicteric, conjunctiva clear ENT: (+) Bilateral nasal turbinates enlargement, posterior pharynx cobblestoning. Auricles normal inspection, hearing grossly normal, Moist mucosa Sinus: Frontal and maxillary sinus tenderness. NECK: Normal ROM, supple, no lymphadenopathy, JVD, or masses LUNGS: Breath sounds equal, clear to auscultation bilaterally. No wheezes, and no crackles HEART: Regular rate and rhythm, normal S1 and S2, no murmurs, rubs or gallops ABDOMEN: Soft, nontender, normoactive bowel sounds. No guarding, no rebound. No masses EXTREMITIES: Normal range of motion, no edema. No clubbing or cyanosis. No cords, erythema, or tenderness NEUROLOGICAL: AOx3. Normal gait. SKIN: Warm, Dry, normal turgor, no rashes or lesions noted. <Kerry Tran - Last Filed: 07/01/18 22:45> - Vital Signs Last Vital Signs Temp Pulse Resp BP Pulse Ox 63 20 131/81 95 07/01/18 21:01 07/01/18 21:01 07/01/18 21:01 07/01/18 21:01 <Jailene Gill - Last Filed: 07/01/18 23:36> ED Treatment Course - LABORATORY CBC & Chemistry Diagram: 07/01/18 22:30 07/01/18 22:30 <Kerry Tran - Last Filed: 07/01/18 22:45> - LABORATORY CBC & Chemistry Diagram: 07/01/18 22:30 07/01/18 22:30 - RADIOLOGY Radiology Studies Ordered: Category Date Time Status HEAD CT WITHOUT CONTRAST [CT] Stat CT Scan 07/01/18 22:04 Ordered <Jailene Gill - Last Filed: 07/01/18 23:36> Medical Decision Making - Medical Decision Making 07/01/18 22:06 52 yo m h/o etoh abuse, copd smoker here wth c/o headache. had a fall few months ago, has had a headache for several weeks. describes as frontal radiating to side his head. no n/v no change to his vision. no f/c no focal weakness. differential subdural, electrolyte abnormality such as hyponatremia, anemia, sinus headahc.e plan treat with ivf, basic labs. ct head due to remote trauma. pt states had no imaging at that time. 07/01/18 23:30 pt labs un[address] head negative. pt took out iv prior to receiving discharge instruction. likely secondary to sinustiis <Jailene Gill - Last Filed: 07/01/18 23:36> *DC/Admit/Observation/Transfer - Attestations Scribe Attestion: 07/01/18 22:17 Documentation prepared by Kerry Tran, acting as medical science liaison for Jailene Gill MD. <Kerry Tran - Last Filed: 07/01/18 22:45> - Discharge Dispostion Decision to Admit order: No <Jailene Gill - Last Filed: 07/01/18 23:36> Diagnosis at time of Disposition: Sinus headache - Discharge Dispostion Disposition: HOME Condition at time of disposition: Stable - Prescriptions Prescriptions: Cetirizine HCl [Zyrtec -] 10 mg PO DAILY #30 tablet Fluticasone Prop 0.05% Nasal [Flonase -] 1 spray NS DAILY #1 bot - Patient Instructions Printed Discharge Instructions: Sinusitis, Serious Ways to Stop Smoking Additional Instructions: you need to stop smoking. you should take flonase intranasal spray each nostril daily . use zyrtec 10 mg daily. you can follow up with a ear nose and throat doctor see referral for dr. Stewart, call to schedule. you can also take motrin 400 mg every 8 hrs as needed for pain.
[2018-07-01] MEDS ORDERED: ACETAMINOPHEN 325 MG TABLET (FP) ONE (22:34)
[2018-07-01 22:52] LABS: BASO % 0.3 % (0-2.0); EOS % 3.6 % (0-4.5); HEMATOCRIT 45.1 % (35.4-49); HEMOGLOBIN 14.8 GM/dl (11.7-16.9); LYMPH % 39.8 % (8-40); MCH 30.8 pg (25.7-33.7); MCHC 32.7 g/dl (32.0-35.9); MEAN CELL VOLUME 94.1 fl (80-96); MEAN PLT VOLUME 8.6 fl (7.5-11.1); MONO % 9.2 % (3.8-10.2); NEUT % 47.1 % (42.8-82.8); PLATELET COUNT 235 K/MM3 (134-434); WHITE BLOOD COUNT 9.9 K/mm3 (4.0-10.8)
[2018-07-01 23:00] LABS: ALBUMIN 4.1 g/dl (3.5-5.0); ALK PHOS 76 U/L (32-92); ANION GAP 7 MMOL/L (8-16); BILIRUBIN,TOTAL 0.3 mg/dl (0.2-1.0); BLOOD UREA NITROGEN 17 mg/dl (7-18); CALCIUM 9.5 mg/dl (8.4-10.2); CHLORIDE 106 mmol/L (98-107); CO2 25 mmol/L (22-28); CREATININE 0.8 mg/dl (0.6-1.3); GLUCOSE,RANDOM 113 mg/dl (74-106); POTASSIUM 3.9 mmol/L (3.5-5.1); SGOT/AST 21 U/L (10-42); SGPT/ALT 25 U/L (10-40); SODIUM 138 mmol/L (136-145); TOT PROT 7.1 g/dl (6.4-8.3)
== END 2018-07-01 23:32 | disposition home or self-care (01) ==
LOC: FER 20:53
PROC: 3E033GC Introduction of Other Therapeutic Substance into Peripheral Vein, Percutaneous Approach (ICD-10-PCS; principal; 2018-07-01)
PROC: 3E0337Z Introduction of Electrolytic and Water Balance Substance into Peripheral Vein, Percutaneous Approach (ICD-10-PCS; 2018-07-01)
DX: G44.89 Other headache syndrome (principal); F17.210 Nicotine dependence, cigarettes, uncomplicated; F10.20 Alcohol dependence, uncomplicated; E78.00 Pure hypercholesterolemia, unspecified; J44.9 Chronic obstructive pulmonary disease, unspecified; I51.9 Heart disease, unspecified
CPT/HCPCS: 36415; 70450-TC; 80053; 85025; 99281-25; J7030

== ENCOUNTER 2018-11-08 16:39 | Emergency (ER) | payer OTHER ==
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
[2018-11-08 17:08] VITALS: BP 130/80; PULSE 62; TEMP 97.6
[2018-11-08 17:16] LABS: URINE APPEARANCE Clear; URINE BILIRUBIN Negative (NEGATIVE); URINE COLOR Yellow; URINE GLUCOSE (UA) Negative (NEGATIVE); URINE KETONE Negative (NEGATIVE); URINE LEUK ESTERASE Negative (NEGATIVE); URINE NITRITE Negative (NEGATIVE); URINE PROTEIN Negative (NEGATIVE)
[2018-11-08 17:22] LABS: URINE UROBILINOGEN 0.2 (0.2-1.0)
--- NOTE | 2018-11-08 17:34 | PDOC ---
Attending Attestation - HPI HPI: This patient is a 53 year old male with PMHx of CAD, triple bypass (2008-@[facility]), CAD, HTN, HLD, COPD, who presents with 3 days of worsening lower abdominal pain along with urinary frequency, urgency. Upon examination, patient as mentions recent testicular pain. Denies any dysuria, hematuria, diarrhea, constipation, fever, chills. No new sexual contacts. No penile d/c Social Hx: pack cigarette smoker, past EtOH abuse (sober over 1 year) Surgical Hx: Splenectomy - Physicial Exam PE: GENERAL: Awake, alert, and fully oriented, in no acute distress HEAD: No signs of trauma EYES: PERRLA, EOMI, sclera anicteric, conjunctiva clear NECK: Normal ROM, supple, no lymphadenopathy, JVD, or masses LUNGS: Breath sounds equal, clear to auscultation bilaterally. No wheezes, and no crackles HEART: Regular rate and rhythm, normal S1 and S2, no murmurs, rubs or gallops ABDOMEN: Soft, rotund abdomen, LLQ tenderness on palpation. No guarding, no rebound. No masses EXTREMITIES: Normal range of motion, no edema. No clubbing or cyanosis. No cords, erythema, or tenderness NEUROLOGICAL: Cranial nerves II through XII grossly intact. Normal speech, normal gait SKIN: Warm, Dry, normal turgor, no rashes or lesions noted. <Debbi Matos - Last Filed: 11/08/18 18:07> - Resident Resident Name: Kate Hartman - ED Attending Attestation I have performed the following: I have examined & evaluated the patient, The case was reviewed & discussed with the resident, I agree w/resident's findings & plan, Exceptions are as noted - Medical Decision Making 11/08/18 18:47 53 yo male ho smoking, copd previously etoh abuse 1 yr sober, htn , CABG, here with lower abd pain. intermittent constipation and diarrhea. no f/c no difficulty with urination. also c/o bilat testcular pain. no n/v no f/c no h/ o diverticulitis. no mod factors. tolerating PO on exam pt with llq ttp. no rebound no guarding. plan us testiciles, ua, ct a/p r/o diverticulitits. ua negative. scrotal ultrasound with small hydrocele. 11/08/18 18:[address] a/p . signed out to oncoming attending dr. marquez. await ct results. anjali kirby on abx for diverticulitis. <Jailene Gill - Last Filed: 11/08/18 18:50> Attestations - Attestations 11/08/18 17:38 Documentation prepared by Debbi Matos, acting as medical staff manager for Jailene Gill MD. <Debbi Matos - Last Filed: 11/08/18 18:07>
[2018-11-08] MEDS ORDERED: ACETAMINOPHEN 1000 MG/100 ML VIAL (NON FORMULARY) IVPB ONE (17:50)
[2018-11-08] MEDS ORDERED: ACETAMINOPHEN INJECTION 100 ML IVPB ONE (18:01)
[2018-11-08] MEDS ORDERED: SODIUM CHLORIDE 1,000 ML IV STA (18:51)
[2018-11-08 19:08] LABS: BASO % 0.3 % (0-2.0); EOS % 3.7 % (0-4.5); HEMATOCRIT 47.1 % (35.4-49); HEMOGLOBIN 15.4 GM/dl (11.7-16.9); MCH 30.2 pg (25.7-33.7); MCHC 32.8 g/dl (32.0-35.9); MEAN CELL VOLUME 92.3 fl (80-96); MEAN PLT VOLUME 8.7 fl (7.5-11.1); MONO % 10.8 % (3.8-10.2); NEUT % 46.2 % (42.8-82.8); PLATELET COUNT 268 K/MM3 (134-434); RBC 5.11 M/mm3 (4.00-5.60); RDW 12.7 % (11.9-15.9); WHITE BLOOD COUNT 9.2 K/mm3 (4.0-10.8)
[2018-11-08 19:12] LABS: ALK PHOS 105 U/L (45-117); ANION GAP 8 MMOL/L (8-16); BILIRUBIN,TOTAL 0.5 mg/dl (0.2-1); BLOOD UREA NITROGEN 14 mg/dl (7-18); CALCIUM 9.3 mg/dl (8.5-10); CHLORIDE 103 mmol/L (98-107); CO2 25 mmol/L (21-32); CREATININE 0.7 mg/dl (0.55-1.3); GLUCOSE,RANDOM 118 mg/dl (74-106); POTASSIUM 4.4 mmol/L (3.5-5.1); SGOT/AST 19 U/L (15-37); SGPT/ALT 21 U/L (13-61); SODIUM 136 mmol/L (136-145); TOT PROT 7.2 g/dl (6.4-8.2)
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
== END 2018-11-08 21:56 | disposition home or self-care (01) ==
LOC: FER 16:39
PROC: 3E033NZ Introduction of Analgesics, Hypnotics, Sedatives into Peripheral Vein, Percutaneous Approach (ICD-10-PCS; principal; 2018-11-08)
PROC: 3E0337Z Introduction of Electrolytic and Water Balance Substance into Peripheral Vein, Percutaneous Approach (ICD-10-PCS; 2018-11-08)
DX: N50.819 Testicular pain, unspecified (principal); R10.30 Lower abdominal pain, unspecified; I25.10 Atherosclerotic heart disease of native coronary artery without angina pectoris; J44.9 Chronic obstructive pulmonary disease, unspecified; I10 Essential (primary) hypertension; E78.5 Hyperlipidemia, unspecified; F10.21 Alcohol dependence, in remission; F11.11 Opioid abuse, in remission
CPT/HCPCS: 36415; 74177-TC; 76870-TC; 80053; 81003; 85025; 87086; 99283-25; J0131; J7030

== ENCOUNTER 2019-02-05 11:06 | Emergency (ER) | payer OTHER | END 2019-02-05 16:00 | disposition left against medical advice (07) | LOC: FER 11:06 ==

== ENCOUNTER 2019-02-05 18:44 | Inpatient (IN) | payer OTHER ==
--- NOTE | 2019-02-05 19:05 | PDOC ---
Rapid Medical Evaluation Time Seen by Provider: 02/05/19 19:03 Medical Evaluation: Allergies Allergy/AdvReac Type Severity Reaction Status Date / Time No Known Allergies Allergy Verified 02/05/19 19:03 02/05/19 19:04 The patient is a 53 y/o M who presents to the ED for increasing adominal pain today. He was evaluated at [facility] and left AMA after being told he had a distal AAA increasing in size. Dr. Collins made Dr. Lubin aware. Pt left AMA for a family emergency and was told to return to the ED immediately to have this repaired. Pt already had blood work and CTA's done today at [facility]. Exam: midabdominal tenderness. NAD Orders: T&S, EKG Pt to proceed to the ED for evaluation Discharge Disposition - Diagnosis Abdominal pain Qualifiers: Abdominal location: unspecified location Qualified Code(s): R10.9 - Unspecified abdominal pain - Referrals - Patient Instructions - Post Discharge Activity
--- NOTE | 2019-02-05 20:02 | PDOC ---
History of Present Illness - General Chief Complaint: Pain, Acute Stated Complaint: REF BY DOCTOR Time Seen by Provider: 02/05/19 19:03 History Source: Patient Exam Limitations: No Limitations - History of Present Illness Initial Comments: 53 yo M with a hx of CAD s/p 3 vessel repair via CABG and AAA presents to the emergency department with abdominal pain. Per the chart, he was evaluated earlier today for abdominal pain and found to have AAA that increased in size and currently symptomatic with pain. He left AMA. The patient re-presented today. He states he had familial issues to deal with today. Per the patient, he has sharp lower abdominal pain located in the lower abdomen without radiation that is 10/10. The patient was originally suppose to have repair on December 23 but was unable to do so due to insurance coverage with Dr. Bronson at [facility]. Denies the following: fever, chills, SOB, chest pain, dysuria, hematuria , diarrhea, and leg pain/swelling. Allergies: NKDA Social: Endorses tobacco (2 packs/40 years --> 80 pack years). Endorses alcohol. Shx: CABG and splenectomy (s/p trauma) Past History - Past Medical History Allergies/Adverse Reactions: Allergies Allergy/AdvReac Type Severity Reaction Status Date / Time No Known Allergies Allergy Verified 02/05/19 19:03 Home Medications: Ambulatory Orders Aspirin [ASA -] 81 mg PO DAILY 06/21/17 Montelukast Sodium [Singulair] 10 mg PO DAILY 11/08/18 Naproxen 500 mg PO BID 11/08/18 Omeprazole 20 mg PO DAILY 11/08/18 Cilostazol [Pletal -] 60 mg PO BID 02/05/19 Anemia: No Asthma: No Cancer: No Cardiac Disorders: Yes (CHD) CVA: No COPD: Yes CHF: No Dementia: No Diabetes: No GI Disorders: Yes Disorders: No HTN: No Hypercholesterolemia: Yes (no medications) Kidney Stones: No Liver Disease: No Psychiatric Problems: Yes (Alcoholism) Seizures: No Thyroid Disease: No - Surgical History Abdominal Surgery: No Appendectomy: No Cardiac Surgery: Yes (OPEN HEART trple by pass in 2008 at [facility]) Cholecystectomy: No Lung Surgery: No Neurologic Surgery: No Orthopedic Surgery: No - Reproductive History Testicular Surgery: No - Suicide/Smoking/Psychosocial Hx Smoking History: Current every day smoker Have you smoked in the past 12 months: Yes Number of Cigarettes Smoked Daily: 40 Cigars Per Day: 0 Information on smoking cessation initiated: No 'Breaking Loose' booklet given: 07/01/18 Hx Alcohol Use: No Drug/Substance Use Hx: No Substance Use Type: Alcohol Hx Substance Use Treatment: Yes (2006) Review of Systems - Review of Systems Able to Perform ROS?: Yes Is the patient limited Macedonian proficient: No Constitutional: No: Chills, Diaphoresis, Fever, Weakness HEENTM: No: Eye Pain, Recent change in vision, Ear Pain, Nose Pain, Throat Pain , Mouth Pain Respiratory: No: Cough, Shortness of Breath, Hemoptysis Cardiac (ROS): No: Chest Pain, Lightheadedness, Palpitations, Syncope, Chest Tightness ABD/GI: Yes: Abdominal Distended, Abdominal cramping. No: Constipated, Diarrhea , Nausea, Rectal Bleeding, Vomiting, Tarry Stools : No: Burning, Dysuria, Incontinence, Pain Musculoskeletal: No: Back Pain, Joint Pain, Neck Pain Integumentary: No: Lesions, Lumps, Pallor Neurological: No: Headache, Numbness, Tingling, Tremors Psychiatric: No: Stressors, Change in Appetite Endocrine: No: Unexplained Weight Gain Hematologic/Lymphatic: No: Anemia *Physical Exam - Vital Signs Last Vital Signs Temp Pulse Resp BP Pulse Ox 98.4 F 62 18 135/78 97 02/05/19 19:06 02/05/19 19:06 02/05/19 19:06 02/05/19 19:06 02/05/19 19:06 - Physical Exam General Appearance: Yes: Nourished, Appropriately Dressed, Obese. No: Apparent Distress, Alcohol on Breath HEENT: positive: EOMI, CLAUDETTE, Normal Voice, Symmetrical, Pharynx Normal, Hearing Grossly Normal. negative: Pale Conjunctivae, Scleral Icterus (R), Scleral Icterus (L), Muffled/Hoarse voice, Pharyngeal Erythema, Tonsillar Exudate, Tonsillar Erythema, Nasal Congestion, Rhinorrhea, Sinus Tenderness, Excessive drooling Neck: positive: Trachea midline, Supple. negative: Tender, Lymphadenopathy (R) , Lymphadenopathy (L), Tender lateral, Tender midline Respiratory/Chest: positive: Lungs Clear, Normal Breath Sounds. negative: Chest Tender, Respiratory Distress, Accessory Muscle Use, Rales, Rhonchi, Stridor, Wheezing, Hyperresonant Cardiovascular: positive: Regular Rhythm, Regular Rate, S1, S2. negative: Systolic Murmur Gastrointestinal/Abdominal: positive: Normal Bowel Sounds, Tender (lower abdominal tenderness bilaterally), Flat, Soft, Distended. negative: Rebound Lymphatic: negative: Adenopathy Musculoskeletal: positive: Normal Inspection. negative: CVA Tenderness, Vertebral Tenderness Extremity: positive: Normal Capillary Refill, Normal Inspection, Normal Range of Motion. negative: Tender Integumentary: positive: Normal Color, Dry, Warm. negative: Swelling, Ecchymosis Neurologic: positive: medical device II-XII NML intact, Fully Oriented, Alert, Normal Mood/ Affect, Normal Response, Motor Strength 5/5. negative: Facial Droop, Numbness, Sensory Deficit ED Treatment Course - LABORATORY CBC & Chemistry Diagram: 02/06/19 06:00 02/06/19 06:00 Medical Decision Making - Medical Decision Making 02/05/19 21:34 53 yo M with a hx of CAD s/p 3 vessel repair via CABG and AAA presents to the emergency department with abdominal pain. Initial vitals: Initial Vital Signs Temp Pulse Resp BP Pulse Ox 98.4 F 62 18 135/78 97 02/05/19 19:06 02/05/19 19:06 02/05/19 19:06 02/05/19 19:06 02/05/19 19:06 Work up: ddx: Patient presents to the emergency department after leaving AMA from [facility] earlier today due to "familial issues". Dr. Lubin was contacted and he stated that no additional labs needed and to prepare for surgery in the AM with cardiac clearance. Laboratory Tests 02/05/19 20:20 Blood Type O POSITIVE Antibody Screen Negative CTA abdomen: Evaluation of the abdominal aorta demonstrates aneurysmal dilatation of the distal aorta with widest AP diameter measuring approximately 5 cm. The aneurysm has 5 increased in size since a prior study of 11/08/2018.. There is also a mild degree of inflammatory changes within the mesenteric fat about the aneurysm. This could be indicative of impending rupture. Clinical correlation is advised. The aneurysm extends into the common iliac arteries. The right common iliac artery measures approximately 4.4 cm and the left approximately 3.7 cm. This is unchanged since previous exam. Patient was admitted to [facility]. Dispo: Admit *DC/Admit/Observation/Transfer Diagnosis at time of Disposition: Abdominal pain Qualifiers: Abdominal location: unspecified location Qualified Code(s): R10.9 - Unspecified abdominal pain - Referrals - Patient Instructions - Post Discharge Activity
[2019-02-05] MEDS ORDERED: morphine CARPU-JECT 4 MG/1 ML DISP.SYRIN IVPUSH ONE ×2 (20:43→22:16)
[2019-02-05] MEDS ORDERED: morphine SULFATE 4 MG/ML VIAL ONE ×2 (20:46→22:34)
--- NOTE | 2019-02-05 22:13 | PN ---
Teaching Attending Note Name of Resident: Red Cox ATTENDING PHYSICIAN STATEMENT I saw and evaluated the patient. I reviewed the resident's note and discussed the case with the resident. I agree with the resident's findings and plan as documented. SUBJECTIVE: Seen and examined; please see resident note for further historical information. Briefly, this is a 53 y/o male with a PMH of CAD s/p CABG, AAA, EtOH abuse, HLD presents with abdominal pain to the ER found to have symptomatic AAA (5cm) that increased in size and has potential signs of impending rupture on imaging with mesenteric stranding; this has already been discussed with vascular and they will see him. His hemodynamics are stable and his LE neurovascular exam is normal, as well. Was to have this repaired at OSH at end of 11/2018 but did not due to insurance reasons. He was seen for this in the earlier day in the ER but left AMA and now returns. He does not recall his home medications. 10 sys ROS done and negative aside from HPI PMH, PSH, SH, FH reviewed Home Medications Medication Instructions Recorded Aspirin [ASA -] 81 mg PO DAILY 06/21/17 Montelukast Sodium [Singulair] 10 mg PO DAILY 11/08/18 Naproxen 500 mg PO BID 11/08/18 Omeprazole 20 mg PO DAILY 11/08/18 Cilostazol [Pletal -] 60 mg PO BID 02/05/19 OBJECTIVE: VS, labs, imaging reviewed NAD, AAO, resting comfortably in bed NC AT EOMI PERRLA RRR s1/2 no mgr Lungs CTAB, w/ slightly prolonged E time Slightly tender, did not do deep palpation, ND, +BS 2+ pulses b/l PT/DP with normal neuro fn b/l LE CN2-12 wnl, no fnd Normal mood, appropriate affect 2016 Mibi with LVEF 59% and no ischemia Echo pending CTA reviewed and discussed; increased in size to 5cm with signs of impending rupture with mesenteric stranding ASSESSMENT AND PLAN: Patient presents to the ER with abdominal pain found to have AAA with possible signs of impending rupture that has increased in size 1) AAA -Imaging findings discussed; has been discussed with vascular and will recall them if any issues overnight -Frequent neurovascular checks, pain control. Avoiding all AC/antiplatelets. -Will obtain CV clearance as requested; consulting Dr. Ginelli. Checking echo. -NPO overnight with low rate IVF; will avoid hypertension. -B/l iliac aneurysms are unchanged 2) CAD s/p CABG -2017 Mibi reviewed; confirm home meds. Hold ASA. -Confirm BP control medications and continue 3) EtOH abuse -Thiamine, folate, CIWA with IV ativan. 4) Hx COPD -No current exacerbation; not on home O2. Incentive spirometry when inpt. 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 so will monitor); monitor CBC and cover emprically if febrile. 7) Hx HLD -Continue home meds once confirmed; was on statin in the past. Full Code
[2019-02-05] MEDS ORDERED: NICOTINE 21 MG/24 HOURS TOPICAL PATCH TD ONE (22:28)
--- NOTE | 2019-02-05 22:31 | PDOC ---
Documentation entered by Parker Quezada SCRIBE, acting as scribe for Nida Quiroga DO. Nida Quiroga DO: This documentation has been prepared by the Damien melchor Nirvannie, SCRIBE, under my direction and personally reviewed by me in its entirety. I confirm that the documentation accurately reflects all work, treatment, procedures, and medical decision making performed by me. Attending Attestation - Resident Resident Name: MikOllie - ED Attending Attestation I have performed the following: I have examined & evaluated the patient, The case was reviewed & discussed with the resident, I agree w/resident's findings & plan - HPI HPI: 02/05/19 21:02 The patient is a 53 year old male, with a significant past medical history of CAD, 3V CABG, AAA, who presents to the emergency department with, abdominal pain. Patient was seen in at [facility] earlier today at which time he was found to have a AAA that increased in size at which time he signed out AMA. Allergies: NKDA Past surgical history: CABG and splenectomy (s/p trauma). Social History: Endorses tobacco (2 packs/40 years). Endorses alcohol. Former Percocet abuse (as per EMR). Primary Care Physician: Dr. Arzola - Physicial Exam PE: 02/05/19 21:02 Agree with resident exam. - Medical Decision Making 02/05/19 22:27 53-year-old male with a history of abdominal aortic aneurysm, advised to stay for admission but signed out AGAINST MEDICAL ADVICE now here to pursue treatment CTA done previously at our sister facility confirms an enlarging abdominal aneurysm Call placed to vascular surgery who agrees to see the patient during this admission Patient currently stable, he is standing up at the side of the bed and talking on his cell phone but is still complaining of some lower abdominal pain Morphine 4 mg IV push 2 doses has been given Plan for admission for further management
--- NOTE | 2019-02-05 22:55 | HP ---
<Red Cox - Last Filed: 02/06/19 23:01> CHIEF COMPLAINT: abdominal pain PCP: Dr. Stokes HISTORY OF PRESENT ILLNESS: Patient is a 53 yo M with a PMHx of CAD s/p CABG, AAA, presented with worsening abdominal pain over the last month. He describes the pain as 10/10, sharp, in the R lower abdomen but mostly localized in the R groin. He came to the ED earlier today for evaluation but left AMA because of family issues. CTA scan done in the ER, showed AAA 5cm with signs of impending rupture with mesenteric stranding which has increased in size since 11/13. Patient was supposed to have the AAA repaired in November but said he had insurance problems. He mentions not having a BM in 2 days. He also says he noticed his stools have been dark in the last few weeks. Denies sob, chest pain , nausea, vomiting, dizziness, urinary changes, headaches, lightheadedness. ER course was notable for: (1) morphine 4mg (2) Dr. Lubin called: will [facility] Recent Travel: denies PAST MEDICAL HISTORY: per HPI PAST SURGICAL HISTORY: CABG, splenectomy from trauma Social History: Smokin ppd for 20 years Alcohol: occasionally Drugs: denies Family History: Allergies No Known Allergies Allergy (Verified 02/05/19 19:03) HOME MEDICATIONS: Home Medications Medication Instructions Recorded Aspirin [ASA -] 81 mg PO DAILY 06/21/17 Montelukast Sodium [Singulair] 10 mg PO DAILY 11/08/18 Naproxen 500 mg PO BID 11/08/18 Omeprazole 20 mg PO DAILY 11/08/18 Cilostazol [Pletal -] 60 mg PO BID 02/05/19 REVIEW OF SYSTEMS CONSTITUTIONAL: Absent: fever, chills, diaphoresis, generalized weakness, malaise, loss of appetite, weight change HEENT: Absent: rhinorrhea, nasal congestion, throat pain, throat swelling, difficulty swallowing, mouth swelling, ear pain, eye pain, visual changes CARDIOVASCULAR: Absent: chest pain, syncope, palpitations, irregular heart rate, lightheadedness , peripheral edema RESPIRATORY: Absent: cough, shortness of breath, dyspnea with exertion, orthopnea, wheezing, stridor, hemoptysis GASTROINTESTINAL: abd pain, melena Absent: abdominal distension, nausea, vomiting, diarrhea, constipation, hematochezia GENITOURINARY: Absent: dysuria, frequency, urgency, hesitancy, hematuria, flank pain, genital pain MUSCULOSKELETAL: Absent: myalgia, arthralgia, joint swelling, back pain, neck pain SKIN: Absent: rash, itching, pallor HEMATOLOGIC/IMMUNOLOGIC: Absent: easy bleeding, easy bruising, lymphadenopathy, frequent infections ENDOCRINE: Absent: unexplained weight gain, unexplained weight loss, heat intolerance, cold intolerance NEUROLOGIC: Absent: headache, focal weakness or paresthesias, dizziness, unsteady gait, seizure, mental status changes, bladder or bowel incontinence PSYCHIATRIC: Absent: anxiety, depression, suicidal or homicidal ideation, hallucinations. PHYSICAL EXAMINATION Vital Signs - 24 hr 02/05/19 02/05/19 19:06 22:43 Temperature 98.4 F Pulse Rate 62 Pulse Rate [ 64 Right] Respiratory 18 16 Rate Blood Pressure 135/78 Blood Pressure 137/80 [Right Arm] O2 Sat by Pulse 97 98 Oximetry (%) GENERAL: Awake, alert, and fully oriented, in no acute distress. HEAD: Normal with no signs of trauma. EYES: Pupils equal, round and reactive to light, extraocular movements intact, sclera anicteric, conjunctiva clear. No lid lag. EARS, NOSE, THROAT: oropharynx clear without exudates. Moist mucous membranes. NECK: Normal range of motion, supple without lymphadenopathy, JVD, or masses. LUNGS: Breath sounds equal, clear to auscultation bilaterally. No wheezes, and no crackles. HEART: Regular rate and rhythm, normal S1 and S2 without murmur, rub or gallop. ABDOMEN: abdominal hernia, psoriasis, overweight. tender to palpation RLQ down to the R groin. no bruits appreciated LOWER EXTREMITIES: 2+ pulses, warm, well-perfused. No calf tenderness. No peripheral edema. NEUROLOGICAL: Cranial nerves II-XII intact. Normal speech. Normal gait. PSYCHIATRIC: Cooperative. Good eye contact. Appropriate mood and affect. SKIN: Warm, dry, normal turgor, no rashes or lesions noted, normal capillary refill. Laboratory Results - last 24 hr 02/05/19 20:20 Blood Type O POSITIVE Antibody Screen Negative CTA abdomen: Evaluation of the abdominal aorta demonstrates aneurysmal dilatation of the distal aorta with widest AP diameter measuring approximately 5 cm. The aneurysm has 5 increased in size since a prior study of 11/08/2018.. There is also a mild degree of inflammatory changes within the mesenteric fat about the aneurysm. This could be indicative of impending rupture. Clinical correlation is advised. The aneurysm extends into the common iliac arteries. The right common iliac artery measures approximately 4.4 cm and the left approximately 3.7 cm. This is unchanged since previous exam. ASSESSMENT/PLAN: Patient presents to the ER with abdominal pain found to have AAA with possible signs of impending rupture that has increased in size #AAA -CTA : showed AAA 5cm with signs of impending rupture with mesenteric stranding which has increased in size since 11/13. -Dr. Lubin consulted: will likely operate tomorrow -Cardio consulted for cardiac clearance: Dr. Zhou -2016 Mibi with LVEF 59% and no ischemia -Echo pending -Type and screen -NPO -Neurovascular checks -IV fluids @ 75 NS -Avoid Antiplatelet/AC #Leukocytosis -afebrile -Mild degree of inflammatory changes within the mesentaeric fat about the aneurysm. aortitis? #CAD s/p CABG -confirm home meds -Hold ASA. #Hx COPD -stable. 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 #FEN -IV fluids NS @75 -monitor -NPO #DVT -SCDs -EAB Full Code Visit type - Emergency Visit Emergency Visit: Yes ED Registration Date: 02/05/19 Care time: The patient presented to the Emergency Department on the above date and was hospitalized for further evaluation of their emergent condition. - New Patient This patient is new to me today: Yes Date on this admission: 02/06/19 - Critical Care Critical Care patient: No <Ollie Hawkins - Last Filed: 03/10/19 22:43> Seen and examined; agree with above aside from as supplemented by myself in my own documentation. Verified hopkins portions of history and repeated and verified all vital components of examination. Thank you to the primary physician of this patient for allowing [facility] to take part in their ongoing care.
--- NOTE | 2019-02-05 23:04 | PN ---
Progress Note (short form) - Note Progress Note: Vascular surgery CT reviewed. 5cm AAA with abdominal pain. Please intiate cardiology and medical clearance. Will fix with Endograft once cleared. Jonah Lubin DO
[2019-02-06] MEDS: SODIUM CHLORIDE 1,000 ML IV SCH (00:36)
[2019-02-06 01:48] VITALS: BMI 29.0
[2019-02-06] MEDS ORDERED: ACETAMINOPHEN 1000 MG/100 ML VIAL (NON FORMULARY) IVPB ONE (06:28)
[2019-02-06 06:52] LABS: BASO % 0.2 % (0-2.0); EOS % 1.8 % (0-4.5); HEMATOCRIT 43.2 % (35.4-49); HEMOGLOBIN 14.5 GM/dL (11.7-16.9); LYMPH % 31.3 % (8-40); MCH 30.5 pg (25.7-33.7); MCHC 33.4 g/dl (32.0-35.9); MEAN CELL VOLUME 91.1 fl (80-96); MEAN PLT VOLUME 7.8 fl (7.5-11.1); NEUT % 55.7 % (42.8-82.8); PLATELET COUNT 275 K/MM3 (134-434); RBC 4.75 M/mm3 (4.00-5.60); RDW 14.3 % (11.9-15.9); WHITE BLOOD COUNT 9.3 K/mm3 (4.0-10.0)
[2019-02-06 06:57] LABS: INR 1.01 (0.83-1.09); PROTHROMBIN TIME (PATIENT) 11.9 SEC (9.7-13.0)
[2019-02-06 07:30] LABS: ALBUMIN 3.8 g/dl (3.4-5.0); BILIRUBIN,TOTAL 0.6 mg/dL (0.2-1); CALCIUM 9.3 mg/dL (8.5-10.1); CREATININE 0.8 mg/dL (0.55-1.3); MAGNESIUM 2.4 mg/dL (1.8-2.4); PHOSPHOROUS 3.4 mg/dL (2.5-4.9); POTASSIUM 4.3 mmol/L (3.5-5.1); TOT PROT 7.1 g/dl (6.4-8.2)
--- NOTE | 2019-02-06 07:46 | SPA.PREOP ---
- PRE-OP NOTE Dx: 5cm AAA Planned Procedure: Bilateral groin cutdowns, endovascular graft repair Surgeon: Jonah Lubin Last Vital Signs Temp Pulse Resp BP Pulse Ox 98.4 F 75 18 133/89 98 02/06/19 06:29 02/06/19 06:29 02/06/19 06:29 02/06/19 06:29 02/05/19 22:43 Lab Results WBC 9.3 K/mm3 (4.0-10.0) 02/06/19 06:00 RBC 4.75 M/mm3 (4.00-5.60) 02/06/19 06:00 Hgb 14.5 GM/dL (11.7-16.9) 02/06/19 06:00 Hct 43.2 % (35.4-49) 02/06/19 06:00 MCV 91.1 fl (80-96) 02/06/19 06:00 MCHC 33.4 g/dl (32.0-35.9) 02/06/19 06:00 RDW 14.3 % (11.9-15.9) 02/06/19 06:00 Plt Count 275 K/MM3 (134-434) D 02/06/19 06:00 Sodium 137 mmol/L (136-145) 02/06/19 06:00 Potassium 4.3 mmol/L (3.5-5.1) 02/06/19 06:00 Chloride 104 mmol/L (98-107) 02/06/19 06:00 Carbon Dioxide 27 mmol/L (21-32) 02/06/19 06:00 Anion Gap 6 MMOL/L (8-16) L 02/06/19 06:00 BUN 11 mg/dL (7-18) 02/06/19 06:00 Creatinine 0.8 mg/dL (0.55-1.3) 02/06/19 06:00 Random Glucose 83 mg/dL (74-106) 02/06/19 06:00 Calcium 9.3 mg/dL (8.5-10.1) 02/06/19 06:00 Blood Type O POSITIVE 02/05/19 20:20 Antibody Screen Negative 02/05/19 20:20 INR 1.01 (0.83-1.09) 02/06/19 06:00 - ASSESSMENT/PLAN 1. NPO after midnight except po meds 2. GI/DVT PPX 3. Medical optimization / clearance 4. Cardio Clearance 5. PRBC on hold for OR 6. Vascular Rep called --> will come in and size aneurysm for appropriate graft size 6. Consent to be obtained by surgeon after risks, benefits and alternatives discussed withpatient and or Health Care Proxy. Problem List - Problems (1) Abdominal aortic aneurysm greater than 39 mm in diameter Code(s): I71.4 - ABDOMINAL AORTIC ANEURYSM, WITHOUT RUPTURE (2) Abdominal pain Code(s): R10.9 - UNSPECIFIED ABDOMINAL PAIN Qualifiers: Abdominal location: unspecified location Qualified Code(s): R10.9 - Unspecified abdominal pain (3) Coronary arteriosclerosis after coronary artery bypass grafting Code(s): I25.810 - ATHEROSCLEROSIS OF CABG W/O ANGINA PECTORIS (4) Nicotine dependence Code(s): F17.200 - NICOTINE DEPENDENCE, UNSPECIFIED, UNCOMPLICATED Qualifiers: Nicotine product type: cigarettes Substance use status: in withdrawal Qualified Code(s): F17.213 - Nicotine dependence, cigarettes, with withdrawal (5) COPD (chronic obstructive pulmonary disease) Code(s): J44.9 - CHRONIC OBSTRUCTIVE PULMONARY DISEASE, UNSPECIFIED Qualifiers: COPD type: emphysema Emphysema type: panlobular Qualified Code(s): J43.1 - Panlobular emphysema Visit type - Case Type Case Type: ED Admission - Emergency Emergency Visit: Yes ED Registration Date: 02/05/19 Care time: The patient presented to the Emergency Department on the above date and was hospitalized for further evaluation of their emergent condition. - New patient This patient is new to me today: Yes Date on this admission: 02/06/19
[2019-02-06] MEDS: morphine SULFATE 4 MG/ML VIAL IVPUSH PRN ×2 (07:59→21:35)
[2019-02-06] MEDS: THIAMINE HCL 200 MG/2 ML VIAL IVPB SCH (09:53)
[2019-02-06] MEDS: MONTELUKAST NA 10 MG TABLET PO SCH (09:53)
[2019-02-06] MEDS: FOLIC ACID 1 MG TABLET (FP) PO SCH (09:53)
[2019-02-06] MEDS ORDERED: PATIENT'S OWN MEDICATION (NON-FORMULARY) (Omeprazole 20 MG) PO SCH (10:00)
--- NOTE | 2019-02-06 10:44 | EKG ---
Test Reason : Blood Pressure : / mmHG Vent. Rate : 063 BPM Atrial Rate : 063 BPM P-R Int : 148 ms QRS Dur : 090 ms QT Int : 384 ms P-R-T Axes : 065 025 -07 degrees QTc Int : 392 ms NORMAL SINUS RHYTHM NORMAL ECG WHEN COMPARED WITH ECG OF 21-JUN-2017 14:08, INVERTED T WAVES HAVE REPLACED NONSPECIFIC T WAVE ABNORMALITY IN INFERIOR LEADS Confirmed by NATALIE GALARZA, CECILIA ([id number]) on 02/06/2019 10:44:28 AM Referred By: Confirmed By:CECILIA ESTRADA MD
--- NOTE | 2019-02-06 13:45 | ECHO ---
Name: NALLELY CHAKRABORTY Exam:Adult Echocardiogram Study Date: 02/06/2019 08:57 AM Age: 53 yrs Reason For Study: Pre-op Height: 66 in Weight: 175 lb BSA: 1.9 m2 MMode/2D Measurements & Calculations IVSd: 0.86 cm Ao root diam: 2.9 cm LVIDd: 5.3 cm LA dimension: 4.3 cm LVIDs: 3.3 cm ACS: 1.9 cm LVPWd: 0.83 cm EDV(Teich): 133.3 ml LVOT diam: 2.1 cm ESV(Teich): 44.2 ml Doppler Measurements & Calculations MV E max lyle: 55.8 cm/sec Ao V2 max: 131.2 cm/sec MV A max lyle: 74.0 cm/sec Ao max P.9 mmHg MV E/A: 0.75 Ao V2 mean: 88.0 cm/sec MV dec time: 0.30 sec Ao mean P.6 mmHg Ao V2 VTI: 25.1 cm MIRANDA(I,D): 3.2 cm2 MIRANDA(V,D): 3.7 cm2 LV V1 max P.0 mmHg SV(LVOT): 80.5 ml LV V1 mean P.0 mmHg LV V1 max: 132.3 cm/sec LV V1 mean: 78.0 cm/sec LV V1 VTI: 22.2 cm Med Peak E' Lyle: 7.7 cm/sec Med E/e': 7.3 Lat Peak E' Lyle: 8.0 cm/sec Lat E/e': 7.0 Procedure A two-dimensional transthoracic echocardiogram with color flow and Doppler was performed. Left Ventricle The left ventricular size, thickness and function are normal. The left ventricular ejection fraction is normal. E/A reversal consistent with but not diagnostic of poor LV compliance. The left ventricular w all motion is normal. Right Ventricle The right ventricle is normal in size and function. Atria The left atrium is mildly dilated. The right atrium is mildly dilated. Mitral Valve There is mild mitral valve thickening. There is no mitral valve stenosis. There is trace to mild mitr al regurgitation. Tricuspid Valve There is mild tricuspid valve thickening. There is no tricuspid stenosis. There was insufficient TR d etected to calculate RV systolic pressure. Aortic Valve The aortic valve is not well visualized. There is mild aortic valve thickening. There is mild aortic sclerosis.;. No hemodynamically significant valvular aortic stenosis. No aortic regurgitation is pres ent. Pulmonic Valve The pulmonic valve is not well visualized. There is no pulmonic valvular stenosis. Mild pulmonic valv ular regurgitation. Great Vessels The aortic root is normal size. Pericardium/Pleura There is no pericardial effusion. Interpretation Summary The left ventricular size, thickness and function are normal The left ventricular ejection fraction is normal. The left ventricular wall motion is normal. The left atrium is mildly dilated. The right atrium is mildly dilated. There is mild aortic sclerosis.; There is mild aortic valve thickening. The aortic valve is not well visualized. No hemodynamically significant valvular aortic stenosis. E/A reversal consistent with but not diagnostic of poor LV compliance There is trace to mild mitral regurgitation. There was insufficient TR detected to calculate RV systolic pressure. MD Willis Oropeza 02/06/2019 01:44 PM
--- NOTE | 2019-02-06 14:08 | CON.CARD ---
Consult Consult Specialty:: Cardiologu Referred by:: Dr. Lubin Reason for Consultation:: Preop evaluation prior to AAA stent graft - History of Present Illness Chief Complaint: Abdomina pain History of Present Illness: 53M active smoker with CAD s/p CABG 2008 ([facility]) abdmitted with abdominal pain found to have 5cm AAA with plan now for endovascular repair on 02/08. ROS: Sedentary, does not exercise and basically walks around house. He does have some claudication symptoms, no rest pain. Chronic MARIE which he attributes to COPD. No syncope or CHF. No palps. No PND. No orthopnea. Has known about the AAA for several months and was being followed. - History Source History Provided By: Patient - Past Medical History Cardio/Vascular: Yes: CAD (s/p CABG x3 2009), HTN, Hyperlipdemia Pulmonary: Yes: COPD Gastrointestinal: No: Ascites, Cancer, Constipation, Crohn's Disease, Diverticulitis, Diverticulosis, Esophageal Varices, Gastritis, GERD, GI Bleed, Hemorrhoids, Hiatal Hernia, Inflamatory Bowel Disease, Irritable Bowel Disease, Pancreatitis, Peptic Ulcer Disease, Ulcerative Colitis, Other Hepatobiliary: No: Cirrhosis, Cholelithiasis, Cholecystitis, Choledocholithiasis , Hepatitis A, Hepatitis B, Hepatitis C, Other Renal/: No: Renal Failure, Renal Inusuff, BPH, Cancer, Hematuria, Hemodialysis , Neurogenic Bladder, Renal Calculi, UTI, Other Infectious Disease: No: AIDS, C-Diff, Herpes Zoster, HIV, MRSA, STD's, Tuberculosis, VREF, Other Psych: No: Addictions, Anxiety, Bipolar, Depression, Panic, Psychosis, Schizophrenia, Other Musculoskeletal: No: Bursitis, Chronic low back pain, Hemiparesis, Hemiplegia, Osteoarthritis, Paraplegia, Other Rheumatology: No: Fibromyalgia, Gout, Lupus, Rheumatoid Arthritis, Sarcoidosis, Vasculitis, Other ENT: No: Allergic Rhinitis, Sinusitis, Other Endocrine: No: Buzz's Disease, Lee's Disease, Diabetes Insipidus, Diabetes Mellitus, Hyperparathyroidism, Hyperthyroidism, Hypothyroidism, Osteopenia, SIADH, Other - Past Surgical History Past Surgical History: Yes: CABG - Alcohol/Substance Use Hx Alcohol Use: No - Smoking History Smoking history: Current every day smoker Have you smoked in the past 12 months: Yes Aproximately how many cigarettes per day: 40 - Social History Usual Living Arrangement: Other (With brother) History of Recent Travel: No Home Medications - Allergies Allergies/Adverse Reactions: Allergies Allergy/AdvReac Type Severity Reaction Status Date / Time No Known Allergies Allergy Verified 02/05/19 19:03 - Home Medications Home Medications: Ambulatory Orders Aspirin [ASA -] 81 mg PO DAILY 06/21/17 Montelukast Sodium [Singulair] 10 mg PO DAILY 11/08/18 Naproxen 500 mg PO BID 11/08/18 Omeprazole 20 mg PO DAILY 11/08/18 Cilostazol [Pletal -] 60 mg PO BID 02/05/19 Diazepam 10 mg PO DAILY 02/06/19 Family Disease History - Family Disease History Family Disease History: Other: Father (AAA) Review of Systems Findings/Remarks: see HPI - Review of Systems Constitutional: reports: No Symptoms Eyes: reports: No Symptoms HENT: reports: No Symptoms Neck: reports: No Symptoms Cardiovascular: reports: Shortness of Breath Respiratory: reports: SOB on Exertion Gastrointestinal: reports: Abdominal Pain Genitourinary: denies: No Symptoms, Burning, Discharge, Dysuria, Flank Pain, Frequency, Hematuria, Incontinence, Lesions, Menses, Pain, Testicular Mass, Testicular Pain, Testicular Swelling, Urgency, Vaginal Bleeding, Other Breasts: denies: No Symptoms Reported, See HPI, Breast Implants, Discharge from Nipple, Lumps, Pain, Skin Changes, Other Musculoskeletal: denies: No Symptoms, Back Pain, Crepitus, Decreased ROM, Extremity Pain, Joint Pain, Joint Swelling, Muscle Pain, Muscle Cramps, Muscle Weakness, Other Integumentary: denies: No Symptoms, Blister, Bruising, Change in Color, Eczema, Erythema, Incision, Lesions, Lump, Pallor, Pruritis, Rash, Wound, Other Neurological: denies: No Symptoms, Change in LOC, Change in Speech, Confusion, Dizziness, Headache, Incoordination, Numbness, Parasthesia, Pre-Existing Deficit , Seizure, Syncope, Tremors, Unsteady Gait, Weakness, Other Endocrine: denies: No Symptoms, Excessive Sweating, Flushing, Increased Hunger, Increased Thirst, Intolerance to Cold, Intolerance to Heat, Unexplained Weight Gain, Unexplained Weight Loss, Other Hematology/Lymphatic: denies: No Symptoms, Easily Bruised, Excessive Bleeding, Swollen Glands, Other Psychiatric: denies: No Symptoms, Altered Sleep Pattern, Anxiety, Depression, Hallucinations, Panic, Paranoia, Suicidal, Other - Risk Factors Known Risk Factors: Yes: Hypertension, Smoking, Other (Known CAD) Vital Signs: Vital Signs Temperature 98.3 F 02/06/19 10:00 Pulse Rate 66 02/06/19 10:00 Respiratory Rate 18 02/06/19 10:00 Blood Pressure 139/92 02/06/19 10:00 O2 Sat by Pulse Oximetry (%) 98 02/06/19 09:00 Constitutional: Yes: Calm Eyes: Yes: Conjunctiva Clear Respiratory: Yes: Other (decreased breath sounds bilaterally, no active wheezing ) Gastrointestinal: Yes: Soft (NT. Pulsatile mass not appreciated.) Cardiovascular: Yes: Regular Rate and Rhythm JVD: No Carotid Bruit: No PMI: Non-Displaced Heart Sounds: Yes: S1, S2 Edema: No Peripheral Pulses: 1+ Left Doralis Pedis, 1+ Right Dorsalis Pedis Neurological: Yes: Alert, Oriented - Other Data Labs, Other Data: CBC, BMP 02/06/19 06:00 02/06/19 06:00 INR, PTT INR 1.01 (0.83-1.09) 02/06/19 06:00 NSR 63bpm, Nonspecific T wave changes inferiorly. No pathologic Q waves. LAE Echo: Report Reviewed (Normal LV function, no sig valve disease.) Imaging - Results Cat Scan: Image Reviewed EKG: Image Reviewed Other: Other (exercise MPI 05/2017: 5 Minutes Prashanth, 85%, no ischemia LVEF 59% Exercise capacity now cannot be assessed by hx alone as he is limited by COPD and PAD symptoms.) Assessment/Plan IMP: 1. 5cm AAA, symptomatic 2. CAD s/p CABG 2008 with normal LV fx 3. Active smoker with COPD 4. HTN Limited exertional capacity due to COPD and PAD. REC: 1. Lexiscan MPI in AM for further periop risk stratification. 2. Patient is on Labetalol, would continue periop. 3. Smoking cessation imperative. 4. Chronic PAD to be addressed post op with antiplatelet regimen, walking program and smoking cessation plan. 5. Check fasting lipids. Final periop recommendations pending non-invasive cardiac risk stratification.
--- NOTE | 2019-02-06 14:22 | PN ---
Physical Exam: SUBJECTIVE: Patient seen and examined this AM. States he is doing well. States he did have some lower back and abdominal pain earlier but was given pain medication which greatly improved his pain. OBJECTIVE: Vital Signs Period Temp Pulse Resp BP Sys/Abernathy Pulse Ox Last 24 Hr 98.2 F-98.4 F 62-76 16-20 128-141/78-92 97-98 GEN: A&O, no acute distress HEENT: Moist mucus membranes, PERRL, EOMI HEART: RRR, no murmurs noted LUNGS: CTA b/l, no wheezes ABDOMEN: Soft, obese, no audible bruit or visible pulsation EXTREMITIES: neurovascularly in tact, good pulses, warm extremities, good capillary refill NEURO: CN II-XII in tact, no gross deficits, 5/5 strength, no sensation deficits Laboratory Results - last 24 hr 02/05/19 02/06/19 02/06/19 20:20 06:00 06:00 WBC 9.3 RBC 4.75 Hgb 14.5 Hct 43.2 MCV 91.1 MCH 30.5 MCHC 33.4 RDW 14.3 Plt Count 275 D MPV 7.8 D Absolute Neuts (auto) 5.2 Neutrophils % 55.7 D Lymphocytes % 31.3 D Monocytes % 11.0 H D Eosinophils % 1.8 D Basophils % 0.2 Nucleated RBC % 0 PT with INR 11.90 INR 1.01 Sodium Potassium Chloride Carbon Dioxide Anion Gap BUN Creatinine Est GFR (CKD-EPI)AfAm Est GFR (CKD-EPI)NonAf Random Glucose Calcium Phosphorus Magnesium Total Bilirubin AST ALT Alkaline Phosphatase Total Protein Albumin Blood Type O POSITIVE Antibody Screen Negative Crossmatch 02/06/19 02/06/19 06:00 06:00 WBC RBC Hgb Hct MCV MCH MCHC RDW Plt Count MPV Absolute Neuts (auto) Neutrophils % Lymphocytes % Monocytes % Eosinophils % Basophils % Nucleated RBC % PT with INR INR Sodium 137 Potassium 4.3 Chloride 104 Carbon Dioxide 27 Anion Gap 6 L BUN 11 Creatinine 0.8 Est GFR (CKD-EPI)AfAm 117.38 Est GFR (CKD-EPI)NonAf 101.27 Random Glucose 83 Calcium 9.3 Phosphorus 3.4 Magnesium 2.4 Total Bilirubin 0.6 AST 14 L ALT 17 Alkaline Phosphatase 125 H Total Protein 7.1 Albumin 3.8 Blood Type O POSITIVE Antibody Screen Negative Crossmatch See Detail Active Medications Generic Name Dose Route Start Last Admin Trade Name Freq PRN Reason Stop Dose Admin Docusate Sodium 100 mg 02/06/19 14:00 Colace - PO TID JESICA Folic Acid 1 mg 02/06/19 10:00 02/06/19 09:53 Folic Acid - PO 1 mg DAILY JESICA Administration Sodium Chloride 1,000 mls @ 75 mls/hr 02/05/19 23:15 02/06/19 00:36 Normal Saline - IV Not Given ASDIR JESICA Labetalol HCl 100 mg 02/06/19 10:00 Normodyne - PO BID JESICA Montelukast Sodium 10 mg 02/06/19 10:00 02/06/19 09:53 Singulair - PO 10 mg DAILY JESICA Administration Morphine Sulfate 4 mg 02/06/19 07:35 02/06/19 07:59 Morphine Sulfate IVPUSH 4 mg Q4H PRN Administration PAIN LEVEL 1-5 Pantoprazole Sodium 20 mg 02/07/19 07:00 Protonix - PO AM JESICA Thiamine HCl 200 mg 02/06/19 10:00 02/06/19 09:53 Vitamin B1 Injection - IVPB 200 mg DAILY JESICA Administration ASSESSMENT/PLAN: 53 yo M with a PMHx of CAD s/p CABG, AAA, COPD, presented with worsening abdominal pain over the last month AAA -Expanding AAA compared with prior CT from other institution -CTA noted with 5 cm AAA with possible inflammatory changes noted -Vascular surgery consult appreciated -For OR on 02/08, graft must be custom from [facility] -Cardiology optimization requested, for LexiScan in AM, NPO at midnight -Monitor for neurovascular compromise CAD s/p CABG -Denies chest pain or current complaints -for stress test in AM -Pt states he takes ASA most days when he remembers, has not taken for 2 days -ECHO without concerning findings COPD -Pt states history of COPD with extensive smoking history -Singulair 10 mg Daily -Monitor respiratory status, currently stable DVT Prophylaxis -SCDs, hold chemical prophylaxis FEN -NS @ 75 cc/hr -monitor and replete -NPO at midnight for Stress test Disposition Med/Surg Visit type - Emergency Visit Emergency Visit: Yes ED Registration Date: 02/05/19 Care time: The patient presented to the Emergency Department on the above date and was hospitalized for further evaluation of their emergent condition. - New Patient This patient is new to me today: Yes Date on this admission: 02/06/19 - Critical Care Critical Care patient: No
[2019-02-06] MEDS ORDERED: HYDROCORTISONE 1% TOPICAL CREAM 30 GM TUBE TP PRN (14:26)
[2019-02-06] MEDS: DOCUSATE SODIUM 100 MG CAPSULE (FP) PO SCH ×2 (15:09→21:28)
[2019-02-06] MEDS: LABETALOL HCL 100 MG TABLET (FP) PO SCH ×2 (15:09→21:27)
--- NOTE | 2019-02-06 15:32 | PN ---
Teaching Attending Note Name of Resident: Miller Zamora ATTENDING PHYSICIAN STATEMENT I saw and evaluated the patient. I reviewed the resident's note and discussed the case with the resident. I agree with the resident's findings and plan as documented. SUBJECTIVE:seen at 10 am No fever or chill. No ELDER , Abd pain has improved with morphine. No N/v, no light headedness. no pain in feet or legs . limited tolerance to climbing stairs due to SOB. nO CP with exertion . OBJECTIVE: NAD . HEENT: no facial droop, MMM CV: RRR, no MRG Lungs: CTAB Abd: soft, TTP in suprapubic area, no rebound tenderness or guarding , no bruits heard in abd , and no pulsation felt . psoriasis lesions in periumbilical area Ext : warm feet and legs, DP 2+ b/l . psoriasis on knees ASSESSMENT AND PLAN: 53 y/o man with h/o CAD. s/p CABG, HTN, AAA, ETOH use, HLp wo presented with Abd painand was found to have increase in AAA size. 1- Rapidly growing Abd AAA: - BP and HR not within goal. started labetalol 100 mg BID - appreciate cardiac Recs : stress in am - echo reviewed. last stress test reviewed in 2017. - hold aspirin - check Lipids in am - monitor vascular exam of LE 2- H/o CAD, s/p CABG. no acitve CP. EKG reviewed. - lipids, hold ASa , will resume after sx. BB 3- Possible PVD: on cilostazol at home . not compliant with his meds. only takes dizepam and asa when he remembers ( last dose 2 days ago) 4- HLOC
[2019-02-07] MEDS: PANTOPRAZOLE 20 MG TABLET (FP) PO SCH (06:50)
[2019-02-07] MEDS: DOCUSATE SODIUM 100 MG CAPSULE (FP) PO SCH ×3 (06:50→21:31)
[2019-02-07] MEDS: morphine SULFATE 4 MG/ML VIAL IVPUSH PRN ×3 (06:53→21:32)
[2019-02-07] MEDS: SODIUM CHLORIDE 1,000 ML IV SCH (07:11)
[2019-02-07 07:52] LABS: HEMATOCRIT 42.4 % (35.4-49); HEMOGLOBIN 14.1 GM/dL (11.7-16.9); MCH 30.4 pg (25.7-33.7); MCHC 33.4 g/dl (32.0-35.9); MEAN CELL VOLUME 91.2 fl (80-96); MEAN PLT VOLUME 7.9 fl (7.5-11.1); PLATELET COUNT 269 K/MM3 (134-434); RBC 4.65 M/mm3 (4.00-5.60); RDW 14.1 % (11.9-15.9); WHITE BLOOD COUNT 9.6 K/mm3 (4.0-10.0)
[2019-02-07 08:53] LABS: CALCIUM 9.1 mg/dL (8.5-10.1); CREATININE 0.8 mg/dL (0.55-1.3); MAGNESIUM 2.3 mg/dL (1.8-2.4); PHOSPHOROUS 3.9 mg/dL (2.5-4.9)
[2019-02-07] MEDS ORDERED: REGADENOSON 0.4 MG/5 ML PRE-FILLED SYRINGE IVPUSH ONE ×2 (09:45→10:23)
--- NOTE | 2019-02-07 11:54 | PN ---
Physical Exam: SUBJECTIVE: Patient seen and examined this AM. States he is doing well after the stress test OBJECTIVE: Vital Signs Period Temp Pulse Resp BP Sys/Abernathy Pulse Ox Last 24 Hr 97.8 F-98.8 F 62-81 18-20 97-143/63-87 98 GEN: A&O, no acute distress HEENT: Moist mucus membranes, PERRL, EOMI HEART: RRR, no murmurs noted LUNGS: CTA b/l, no wheezes ABDOMEN: Soft, obese, no audible bruit or visible pulsation EXTREMITIES: neurovascularly in tact, good pulses, warm extremities, good capillary refill NEURO: CN II-XII in tact, no gross deficits, 5/5 strength, no sensation deficits Laboratory Results - last 24 hr 02/07/19 02/07/19 07:00 07:00 WBC 9.6 RBC 4.65 Hgb 14.1 Hct 42.4 MCV 91.2 MCH 30.4 MCHC 33.4 RDW 14.1 Plt Count 269 MPV 7.9 Sodium 140 Potassium 4.0 Chloride 106 Carbon Dioxide 24 Anion Gap 10 BUN 14 Creatinine 0.8 Est GFR (CKD-EPI)AfAm 117.38 Est GFR (CKD-EPI)NonAf 101.27 Random Glucose 93 Calcium 9.1 Phosphorus 3.9 Magnesium 2.3 Triglycerides 137 Cholesterol 180 Total LDL Cholesterol 141 H HDL Cholesterol 25 L Active Medications Generic Name Dose Route Start Last Admin Trade Name Freq PRN Reason Stop Dose Admin Atorvastatin Calcium 40 mg 02/07/19 22:00 Lipitor - PO HS JESICA Docusate Sodium 100 mg 02/06/19 14:00 02/07/19 06:50 Colace - PO Not Given TID JESICA Folic Acid 1 mg 02/06/19 10:00 02/06/19 09:53 Folic Acid - PO 1 mg DAILY JESICA Administration Hydrocortisone 1 applic 02/06/19 14:26 02/06/19 21:27 Hytone 1% Cream - TP 1 applic Q12H PRN Administration DRY SKIN Sodium Chloride 1,000 mls @ 75 mls/hr 02/05/19 23:15 02/07/19 07:11 Normal Saline - IV 75 mls/hr ASDIR JESICA Administration Labetalol HCl 100 mg 02/06/19 10:00 02/06/19 21:27 Normodyne - PO 100 mg BID JESICA Administration Montelukast Sodium 10 mg 02/06/19 10:00 02/06/19 09:53 Singulair - PO 10 mg DAILY JESICA Administration Morphine Sulfate 4 mg 02/06/19 07:35 02/07/19 06:53 Morphine Sulfate IVPUSH 4 mg Q4H PRN Administration PAIN LEVEL 1-5 Pantoprazole Sodium 20 mg 02/07/19 07:00 02/07/19 06:50 Protonix - PO Not Given AM JESICA Thiamine HCl 200 mg 02/06/19 10:00 02/06/19 09:53 Vitamin B1 Injection - IVPB 200 mg DAILY JESICA Administration ASSESSMENT/PLAN: 53 yo M with a PMHx of CAD s/p CABG, AAA, COPD, presented with worsening abdominal pain over the last month AAA -Expanding AAA compared with prior CT from other institution -CTA noted with 5 cm AAA with possible inflammatory changes noted -Vascular surgery consult appreciated -For OR in AM, graft must be custom from [facility] -Cardiology optimized, medically optimized, NPO at midnight -Monitor for neurovascular compromise -Labetalol 100 mg PO BID for HR and BP cnotrol CAD s/p CABG -Denies chest pain or current complaints -Stress with small area of inferior ischemia -Pt states he takes ASA most days when he remembers, has not taken for 3 days -ECHO without concerning findings -acceptable risk for AAA repair as per cardiology COPD -Pt states history of COPD with extensive smoking history -Singulair 10 mg Daily -Monitor respiratory status, currently stable DVT Prophylaxis -SCDs, hold chemical prophylaxis FEN -NS @ 75 cc/hr -monitor and replete -NPO at midnight for OR Disposition Med/Surg Visit type - Emergency Visit Emergency Visit: Yes ED Registration Date: 02/05/19 Care time: The patient presented to the Emergency Department on the above date and was hospitalized for further evaluation of their emergent condition. - New Patient This patient is new to me today: No - Critical Care Critical Care patient: No
[2019-02-07] MEDS ORDERED: PT OWN MED DRAWER 7, Y5N ONE (12:37)
[2019-02-07] MEDS: LABETALOL HCL 100 MG TABLET (FP) PO SCH ×2 (12:43→21:32)
[2019-02-07] MEDS: MONTELUKAST NA 10 MG TABLET PO SCH (12:43)
[2019-02-07] MEDS: FOLIC ACID 1 MG TABLET (FP) PO SCH (12:43)
[2019-02-07] MEDS: THIAMINE HCL 200 MG/2 ML VIAL IVPB SCH ×2 (12:44→12:47)
[2019-02-07] MEDS ORDERED: BISACODYL 10 MG SUPP.RECT RC ONE (15:40)
[2019-02-07] MEDS ORDERED: POLYETHYLENE GLYCOL 3350 119 GM BTL PO ONE (15:45)
[2019-02-07] MEDS ORDERED: POLYETHYLENE GLYCOL 3350 119 GM BTL PO PRN (15:45)
--- NOTE | 2019-02-07 15:45 | PN ---
Teaching Attending Note Name of Resident: Clark Navarro ATTENDING PHYSICIAN STATEMENT I saw and evaluated the patient. I reviewed the resident's note and discussed the case with the resident. I agree with the resident's findings and plan as documented. SUBJECTIVE: No fever or chills . No CP or H A. constipated , no BM in 6 days . has lower abd pain, occasional pain in lower abdomen OBJECTIVE: NAD . HEENT: no facial droop, MMM CV: RRR, no MRG Lungs: CTAB Abd: soft, TTP in suprapubic area, no rebound tenderness or guarding, no bruits heard in abd, and no pulsation felt . psoriasis lesions in periumbilical area EXt : no edema psoriasis on knees ASSESSMENT AND PLAN: 53 y/o man with h/o CAD. s/p CABG, HTN, AAA, ETOH use, HLp wo presented with Abd painand was found to have increase in AAA size. 1- Rapidly growing, symptomatic Abd AAA: - BP and HR are acceptable - stress test with mild inferiolateral ischemia. - to be evaluated by [facility] shortly for pre-op eval - cont labetalol 2- Hyperlipidemia: LDL above goal. statins 3- H/o CAD, s/p CABG. - hold ASa , will resume after sx. BB 3- Possible PVD: on cilostazol at home . 4- HLOC
--- NOTE | 2019-02-07 16:19 | PN ---
Progress Note (short form) - Note Progress Note: s: no chest pain, palps, dizziness, lightheadedness Current Medications Atorvastatin Calcium (Lipitor -) 40 mg PO HS [facility] Bisacodyl (Dulcolax Suppository -) 10 mg WI ONCE ONE Stop: 02/07/19 15:41 Docusate Sodium (Colace -) 100 mg PO TID [facility] Last Admin: 02/07/19 14:05 Dose: 100 mg Folic Acid (Folic Acid -) 1 mg PO DAILY [facility] Last Admin: 02/07/19 12:43 Dose: 1 mg Hydrocortisone (Hytone 1% Cream -) 1 applic TP Q12H PRN PRN Reason: DRY SKIN Last Admin: 02/06/19 21:27 Dose: 1 applic Sodium Chloride (Normal Saline -) 1,000 mls @ 75 mls/hr IV ASDIR [facility] Last Admin: 02/07/19 07:11 Dose: 75 mls/hr Labetalol HCl (Normodyne -) 100 mg PO BID [facility] Last Admin: 02/07/19 12:43 Dose: 100 mg Montelukast Sodium (Singulair -) 10 mg PO DAILY [facility] Last Admin: 02/07/19 12:43 Dose: 10 mg Morphine Sulfate (Morphine Sulfate) 4 mg IVPUSH Q4H PRN PRN Reason: PAIN LEVEL 1-5 Last Admin: 02/07/19 12:50 Dose: 4 mg Pantoprazole Sodium (Protonix -) 20 mg PO AM [facility] Last Admin: 02/07/19 06:50 Dose: Not Given Polyethylene Glycol (Miralax (For Daily Use) -) 17 gm PO ONCE ONE Stop: 02/07/19 15:46 Polyethylene Glycol (Miralax (For Daily Use) -) 17 gm PO PRN PRN PRN Reason: CONSTIPATION Thiamine HCl (Vitamin B1 Injection -) 200 mg IVPB DAILY [facility] Last Admin: 02/07/19 12:47 Dose: Not Given Vital Signs Period Temp Pulse Resp BP Sys/Abernathy Pulse Ox Last 24 Hr 97.5 F-98.8 F 55-81 20-20 97-129/63-73 Constitutional: Yes: Calm Eyes: Yes: Conjunctiva Clear Respiratory: Yes: Other (decreased breath sounds bilaterally, no active wheezing ) Gastrointestinal: Yes: Soft (NT. Pulsatile mass not appreciated.) Cardiovascular: Yes: Regular Rate and Rhythm JVD: No Carotid Bruit: No PMI: Non-Displaced Heart Sounds: Yes: S1, S2 Edema: No Peripheral Pulses: 1+ Left Doralis Pedis, 1+ Right Dorsalis Pedis Neurological: Yes: Alert, Oriented NSR 63bpm, Nonspecific T wave changes inferiorly. No pathologic Q waves. LAE Echo: Report Reviewed (Normal LV function, no sig valve disease.) mibi 01/2019 mild inf/inferolateral ischemia. nl EF, no TID Imaging - Results Cat Scan: Image Reviewed EKG: Image Reviewed Other: Other (exercise MPI 05/2017: 5 Minutes Prashanth, 85%, no ischemia LVEF 59% Exercise capacity now cannot be assessed by hx alone as he is limited by COPD and PAD symptoms.) Assessment/Plan IMP: 1. 5cm AAA, symptomatic 2. CAD s/p CABG 2008 with normal LV fx 3. Active smoker with COPD 4. HTN Limited exertional capacity due to COPD and PAD. REC: 1. Mibi shows mild inferior/inferolateral area of ischemia - no chest pain, stable dyspnea on exertion for years 2. Patient is on Labetalol, would continue periop. 3. Smoking cessation imperative. 4. Chronic PAD to be addressed post op with antiplatelet regimen, walking program and smoking cessation plan. 5. HLD - continue statin 6. Planned surgery for endovascular graft repair for AAA. Echo unremarkable, mibi with mild ischemia, asymptomatic. Patient is at acceptable risk for surgery, no further testing prior to procedure, continue current management perioperatively.
--- NOTE | 2019-02-07 16:27 | PN ---
Progress Note (short form) - Note Progress Note: Pt planned for [facility] at 9AM on 02/[address] Lubin. Please keep npo after midnight. Labs wnl, ekg, echo and stress test on the chart from this admission. CT chest/ abdomen in chart from 02/05. Confirmed with blood bank 2 units are cross matched on hold for OR. Medical clearance appreciated
[2019-02-07] MEDS ORDERED: ATORVASTATIN CA 40 MG TABLET (FP) PO SCH (22:00)
[2019-02-08] MEDS: morphine SULFATE 4 MG/ML VIAL IVPUSH PRN ×3 (06:39→19:53)
[2019-02-08] MEDS: DOCUSATE SODIUM 100 MG CAPSULE (FP) PO SCH (06:39)
[2019-02-08] MEDS: PANTOPRAZOLE 20 MG TABLET (FP) PO SCH (06:39)
[2019-02-08 07:19] LABS: CREATININE 0.8 mg/dL (0.55-1.3); MAGNESIUM 2.4 mg/dL (1.8-2.4); PHOSPHOROUS 3.4 mg/dL (2.5-4.9); POTASSIUM 4.3 mmol/L (3.5-5.1)
[2019-02-08 07:25] LABS: HEMATOCRIT 41.7 % (35.4-49); HEMOGLOBIN 13.8 GM/dL (11.7-16.9); MCH 30.3 pg (25.7-33.7); MCHC 33.2 g/dl (32.0-35.9); MEAN CELL VOLUME 91.4 fl (80-96); PLATELET COUNT 266 K/MM3 (134-434); RBC 4.56 M/mm3 (4.00-5.60); RDW 14.4 % (11.9-15.9); WHITE BLOOD COUNT 10.6 K/mm3 (4.0-10.0)
--- NOTE | 2019-02-08 08:02 | PN ---
Physical Exam: SUBJECTIVE: Attempted to see patient prior to OR this AM. Pt was not in room, found by security outside smoking. Unable to see or examine pt prior to surgery. will examine in PACU postoperatively. OBJECTIVE: Vital Signs Period Temp Pulse Resp BP Sys/Abernathy Pulse Ox Last 24 Hr 97.5 F-98.1 F 55-73 18-20 109-166/64-76 98 Unable to obtain this AM. will assess this afternoon in the PACU. Laboratory Results - last 24 hr 02/07/19 02/07/19 02/08/19 07:00 07:00 06:15 WBC 9.6 RBC 4.65 Hgb 14.1 Hct 42.4 MCV 91.2 MCH 30.4 MCHC 33.4 RDW 14.1 Plt Count 269 MPV 7.9 Sodium 140 138 Potassium 4.0 4.3 Chloride 106 106 Carbon Dioxide 24 26 Anion Gap 10 6 L BUN 14 16 Creatinine 0.8 0.8 Est GFR (CKD-EPI)AfAm 117.38 117.38 Est GFR (CKD-EPI)NonAf 101.27 101.27 Random Glucose 93 94 Calcium 9.1 9.0 Phosphorus 3.9 3.4 Magnesium 2.3 2.4 Triglycerides 137 Cholesterol 180 Total LDL Cholesterol 141 H HDL Cholesterol 25 L Active Medications Generic Name Dose Route Start Last Admin Trade Name Freq PRN Reason Stop Dose Admin Atorvastatin Calcium 40 mg 02/07/19 22:00 02/07/19 21:32 Lipitor - PO 40 mg HS JESICA Administration Docusate Sodium 100 mg 02/06/19 14:00 02/08/19 06:39 Colace - PO Not Given TID JESICA Folic Acid 1 mg 02/06/19 10:00 02/07/19 12:43 Folic Acid - PO 1 mg DAILY JESICA Administration Hydrocortisone 1 applic 02/06/19 14:26 02/06/19 21:27 Hytone 1% Cream - TP 1 applic Q12H PRN Administration DRY SKIN Sodium Chloride 1,000 mls @ 75 mls/hr 02/05/19 23:15 02/07/19 07:11 Normal Saline - IV 75 mls/hr ASDIR JESICA Administration Labetalol HCl 100 mg 02/06/19 10:00 02/07/19 21:32 Normodyne - PO 100 mg BID JESICA Administration Montelukast Sodium 10 mg 02/06/19 10:00 02/07/19 12:43 Singulair - PO 10 mg DAILY JESICA Administration Morphine Sulfate 4 mg 02/06/19 07:35 02/08/19 06:39 Morphine Sulfate IVPUSH 4 mg Q4H PRN Administration PAIN LEVEL 1-5 Pantoprazole Sodium 20 mg 02/07/19 07:00 02/08/19 06:39 Protonix - PO Not Given AM JESICA Polyethylene Glycol 17 gm 02/07/19 15:45 Miralax (For Daily Use) - PO PRN PRN CONSTIPATION Thiamine HCl 200 mg 02/06/19 10:00 02/07/19 12:47 Vitamin B1 Injection - IVPB Not Given DAILY JESICA ASSESSMENT/PLAN: 53 yo M with a PMHx of CAD s/p CABG, AAA, COPD, presented with worsening abdominal pain over the last month AAA -Expanding AAA compared with prior CT from other institution -CTA noted with 5 cm AAA with possible inflammatory changes noted -Vascular surgery consult appreciated -OR today for repair, custom graft from [facility] -Monitor for neurovascular compromise post-op -Labetalol 100 mg PO BID for HR and BP control CAD s/p CABG -Denies chest pain or current complaints -Stress with small area of inferior ischemia -Pt states he takes ASA most days when he remembers, has not taken for 3 days -ECHO without concerning findings -acceptable risk for AAA repair as per cardiology COPD -Pt states history of COPD with extensive smoking history -Singulair 10 mg Daily -Monitor respiratory status, currently stable -Actively smoking DVT Prophylaxis -SCDs, hold chemical prophylaxis until okayed by surgery FEN -NS @ 75 cc/hr -monitor and replete -Restart diet pending surgery Disposition Med/Surg Visit type - Emergency Visit Emergency Visit: Yes ED Registration Date: 02/05/19 Care time: The patient presented to the Emergency Department on the above date and was hospitalized for further evaluation of their emergent condition. - New Patient This patient is new to me today: No - Critical Care Critical Care patient: Yes Total Critical Care Time (in minutes): 40 Critical Care Statement: The care of this patient involved high complexity decision making to prevent further life threatening deterioration of the patient 's condition and/or to evaluate & treat vital organ system(s) failure or risk of failure.
[2019-02-08] MEDS ORDERED: HEPARIN NA (PORCINE) 5,000 UNITS/ML 1ML VIAL ONE (08:13)
[2019-02-08] MEDS: LABETALOL HCL 100 MG TABLET (FP) PO SCH (08:22)
[2019-02-08] MEDS ORDERED: MIDAZOLAM HCL 2 MG/2 ML SINGLE DOSE VIAL ONE ×2 (09:10)
[2019-02-08] MEDS ORDERED: fentaNYL CITRATE 250 MCG/5 ML VIAL ONE (09:10)
[2019-02-08] MEDS ORDERED: ROCURONIUM BROMIDE 50 MG/5 ML VIAL ONE ×2 (09:11→10:43)
[2019-02-08] MEDS ORDERED: PROPOFOL 20 ML ONE ×2 (09:11)
[2019-02-08] MEDS ORDERED: ceFAZolin SODIUM 1 GM VIAL IVPB ONE (09:29)
[2019-02-08] MEDS ORDERED: ePHEDrine SULFATE 50 MG/1 ML AMPULE ONE (09:46)
[2019-02-08] MEDS ORDERED: POVIDONE-IODINE OINTMENT 10% - 28.4 GM TUBE ONE (13:16)
--- NOTE | 2019-02-08 13:23 | PN ---
Progress Note (short form) - Note Progress Note: Vascular Surgery Attempted EVAR for 5cm AAA with bl common iliac artery aneurysms. Due to anatomical issues, with severe tortuoisty in right iliac artery, unable to do procedure. Pt will need to be transferred to tertiary care center. Might need open operation. Facility should have cardiac cath due to his mild ischemia on stess test. Jonah Lubin dO
[2019-02-08] MEDS ORDERED: ONDANSETRON 4 MG/2 ML VIAL IVPUSH PRN (13:47)
--- NOTE | 2019-02-08 13:55 | OP ---
Operative Note - Note: Operative Date: 02/08/19 Pre-Operative Diagnosis: AAA Operation: BL groin cut down, Aortogram Findings: 5cm AAA BL common iliac artery aneurysms Post-Operative Diagnosis: Same as Pre-op Surgeon: Jonah Lubin Manager Plant: Oswald Santana Anesthesia: General Estimated Blood Loss (mls): 200 Operative Report Dictated: Yes
[2019-02-08] MEDS ORDERED: LACTATED RINGERS SOLUTION 1,000 ML IV SCH (14:00)
[2019-02-08] MEDS: SODIUM CHLORIDE 1,000 ML IV SCH (14:10)
--- NOTE | 2019-02-08 15:11 | PN ---
Progress Note (short form) - Note Progress Note: s: no chest pain, palps, dizziness, lightheadedness Current Medications Generic Name Dose Route Start Last Admin Trade Name Freq PRN Reason Stop Dose Admin Atorvastatin Calcium 40 mg 02/07/19 22:00 02/07/19 21:32 Lipitor - PO 40 mg HS JESICA Administration Chlorhexidine Gluconate 1 applic 02/08/19 22:00 Hibiclens For Decolonization - TP HS JESICA Docusate Sodium 100 mg 02/06/19 14:00 02/08/19 06:39 Colace - PO Not Given TID JESICA Fentanyl 25 mcg 02/08/19 13:47 02/08/19 14:45 Sublimaze Injection - IVPUSH 25 mcg [id number] PRN Administration PAIN-PACU ORDER X 4 DOSES ONLY Folic Acid 1 mg 02/06/19 10:00 02/07/19 12:43 Folic Acid - PO 1 mg DAILY JESICA Administration Hydrocortisone 1 applic 02/06/19 14:26 02/06/19 21:27 Hytone 1% Cream - TP 1 applic Q12H PRN Administration DRY SKIN Sodium Chloride 1,000 mls @ 75 mls/hr 02/05/19 23:15 02/07/19 07:11 Normal Saline - IV 75 mls/hr ASDIR JESICA Administration Lactated Ringer's 1,000 mls @ 125 mls/hr 02/08/19 14:00 Lactated Ringers Solution IV ASDIR JESICA Labetalol HCl 100 mg 02/06/19 10:00 02/08/19 08:22 Normodyne - PO 100 mg BID JESICA Administration Montelukast Sodium 10 mg 02/06/19 10:00 02/07/19 12:43 Singulair - PO 10 mg DAILY JESICA Administration Morphine Sulfate 4 mg 02/06/19 07:35 02/08/19 14:06 Morphine Sulfate IVPUSH 4 mg Q4H PRN Administration PAIN LEVEL 1-5 Mupirocin 1 applic 02/08/19 22:00 Bactroban Ointment (For Decolonization) - NS 02/13/19 21:59 BID JESICA Ondansetron HCl 4 mg 02/08/19 13:47 Zofran Injection IVPUSH Q6H PRN NAUSEA AND/OR VOMITING Pantoprazole Sodium 20 mg 02/07/19 07:00 02/08/19 06:39 Protonix - PO Not Given AM JESICA Polyethylene Glycol 17 gm 02/07/19 15:45 Miralax (For Daily Use) - PO PRN PRN CONSTIPATION Thiamine HCl 200 mg 02/06/19 10:00 02/07/19 12:47 Vitamin B1 Injection - IVPB Not Given DAILY JESICA Vital Signs Period Temp Pulse Resp BP Sys/Abernathy Pulse Ox Last 24 Hr 98 F-98.1 F 64-74 18-20 109-166/64-76 98-98 Constitutional: Yes: Calm Eyes: Yes: Conjunctiva Clear Respiratory: Yes: cta bl nl eff Gastrointestinal: Yes: Soft (NT. Pulsatile mass not appreciated.) Cardiovascular: Yes: Regular Rate and Rhythm JVD: No Heart Sounds: Yes: S1, S2 Edema: No Peripheral Pulses: 1+ Left Doralis Pedis, 1+ Right Dorsalis Pedis Neurological: Yes: Alert, Oriented no jaundice diaphoresis Laboratory Last Values WBC 10.6 K/mm3 (4.0-10.0) H 02/08/19 06:15 RBC 4.56 M/mm3 (4.00-5.60) 02/08/19 06:15 Hgb 13.8 GM/dL (11.7-16.9) 02/08/19 06:15 Hct 41.7 % (35.4-49) 02/08/19 06:15 MCV 91.4 fl (80-96) 02/08/19 06:15 MCH 30.3 pg (25.7-33.7) 02/08/19 06:15 MCHC 33.2 g/dl (32.0-35.9) 02/08/19 06:15 RDW 14.4 % (11.9-15.9) 02/08/19 06:15 Plt Count 266 K/MM3 (134-434) 02/08/19 06:15 MPV 8.0 fl (7.5-11.1) 02/08/19 06:15 Absolute Neuts (auto) 5.2 K/mm3 (1.5-8.0) 02/06/19 06:00 Neutrophils % 55.7 % (42.8-82.8) D 02/06/19 06:00 Lymphocytes % 31.3 % (8-40) D 02/06/19 06:00 Monocytes % 11.0 % (3.8-10.2) H D 02/06/19 06:00 Eosinophils % 1.8 % (0-4.5) D 02/06/19 06:00 Basophils % 0.2 % (0-2.0) 02/06/19 06:00 Nucleated RBC % 0 % (0-0) 02/06/19 06:00 PT with INR 11.90 SEC (9.7-13.0) 02/06/19 06:00 INR 1.01 (0.83-1.09) 02/06/19 06:00 Sodium 138 mmol/L (136-145) 02/08/19 06:15 Potassium 4.3 mmol/L (3.5-5.1) 02/08/19 06:15 Chloride 106 mmol/L (98-107) 02/08/19 06:15 Carbon Dioxide 26 mmol/L (21-32) 02/08/19 06:15 Anion Gap 6 MMOL/L (8-16) L 02/08/19 06:15 BUN 16 mg/dL (7-18) 02/08/19 06:15 Creatinine 0.8 mg/dL (0.55-1.3) 02/08/19 06:15 Est GFR (CKD-EPI)AfAm 117.38 02/08/19 06:15 Est GFR (CKD-EPI)NonAf 101.27 02/08/19 06:15 Random Glucose 94 mg/dL (74-106) 02/08/19 06:15 Calcium 9.0 mg/dL (8.5-10.1) 02/08/19 06:15 Phosphorus 3.4 mg/dL (2.5-4.9) 02/08/19 06:15 Magnesium 2.4 mg/dL (1.8-2.4) 02/08/19 06:15 Total Bilirubin 0.6 mg/dL (0.2-1) 02/06/19 06:00 AST 14 U/L (15-37) L 02/06/19 06:00 ALT 17 U/L (13-61) 02/06/19 06:00 Alkaline Phosphatase 125 U/L (45-117) H 02/06/19 06:00 Total Protein 7.1 g/dl (6.4-8.2) 02/06/19 06:00 Albumin 3.8 g/dl (3.4-5.0) 02/06/19 06:00 Triglycerides 137 mg/dL (0-150) 02/07/19 07:00 Cholesterol 180 mg/dL (50-200) 02/07/19 07:00 Total LDL Cholesterol 141 mg/dL (5-100) H 02/07/19 07:00 HDL Cholesterol 25 mg/dL (40-60) L 02/07/19 07:00 Blood Type O POSITIVE 02/06/19 06:00 Antibody Screen Negative 02/06/19 06:00 Crossmatch See Detail 02/06/19 06:00 NSR 63bpm, Nonspecific T wave changes inferiorly. No pathologic Q waves. LAE Echo: Report Reviewed (Normal LV function, no sig valve disease.) tele: sr mibi 01/2019 mild inf/inferolateral ischemia. nl EF, no TID Imaging - Results Cat Scan: Image Reviewed EKG: Image Reviewed Other: Other (exercise MPI 05/2017: 5 Minutes Prashanth, 85%, no ischemia LVEF 59% Exercise capacity now cannot be assessed by hx alone as he is limited by COPD and PAD symptoms.) Assessment/Plan IMP: 1. 5cm AAA, symptomatic 2. CAD s/p CABG 2008 with normal LV fx 3. Active smoker with COPD 4. HTN Limited exertional capacity due to COPD and PAD. REC: 1. Mibi shows mild inferior/inferolateral area of ischemia - no chest pain, stable dyspnea on exertion for years 2. Patient is on Labetalol, would continue periop. 3. Smoking cessation imperative. 4. Chronic PAD to be addressed post op with antiplatelet regimen, walking program and smoking cessation plan. 5. HLD - continue statin 6. Planned surgery for endovascular graft repair for AAA. Echo unremarkable, mibi with mild ischemia, asymptomatic. Patient is at acceptable risk for surgery, no further testing prior to procedure, continue current management perioperatively-->EVAR attempted 02/08 but not successful due to anatomical issues. Pt awaiting transfer to tertiary care center for further options.
--- NOTE | 2019-02-08 15:29 | PROC ---
Procedure Note Procedure: In preparation for surgery this morning, placed left radial arterial line for more accurate BP monitoring as well as kumar w/ urometer. Patient tolerated both procedures well.
--- NOTE | 2019-02-08 15:32 | SURG ---
Surgery Hvac Project Engineer Note Hvac Project Engineer: Oswald Santana PA-C Date of Service: 02/08/19 Diagnosis: Abodiminal Aortic Aneurysm with bilateral common iliac artery aneurysms Procedure: Bilateral groin cut-downs. Attempted EVAR for 5cm AAA with bilateral common iliac artery aneurysms. Due to anatomical issues, with severe tortuosity in right iliac artery, unable to do procedure. Patient will be transferred to tertiary care facility for further management. I was present for the entirety of the operative procedure. For further detail, please refer to operative report. Visit type - Case Type Case Type: ED Admission
--- NOTE | 2019-02-08 17:59 | PN ---
Teaching Attending Note Name of Resident: Miller Zamora ATTENDING PHYSICIAN STATEMENT I saw and evaluated the patient. I reviewed the resident's note and discussed the case with the resident. I agree with the resident's findings and plan as documented. SUBJECTIVE: Seen after hi sx. he complains of abd pain. frustrated as sx was not successful OBJECTIVE: NAD. CV: RRR, no MRG Lungs: CTAB Abd: soft, TTP in suprapubic area, no rebound tenderness or guarding, no bruits heard in abd, and no pulsation felt . psoriasis lesions in periumbilical area EXt : no edema psoriasis on knees ASSESSMENT AND PLAN: 53 y/o man with h/o CAD. s/p CABG, HTN, AAA, ETOH use, HLp wo presented with Abd painand was found to have increase in AAA size. 1- Rapidly growing, symptomatic Abd AAA: vascular access was not successful as iliac vessels were very torturous . will need open surgery - d/w vascular. will need to be transferred - transfer initiated and patient is accepted to [facility] - cont labetalol - pain control 2- Hyperlipidemia: LDL above goal. statins 3- H/o CAD, s/p CABG. - hold ASA, will resume after sx ( last dose on 02/04) . - cont BB 3- Possible PVD: on cilostazol at home. Transfer to [facility]
[2019-02-08 20:11] VITALS: BP 115/69; PULSE 64; TEMP 98.2
[2019-02-08] MEDS ORDERED: MUPIROCIN 2% TOPICAL OINTMENT FOR DECOLONIZATION NS SCH (22:00)
[2019-02-08] MEDS ORDERED: CHLORHEXIDINE GLUCONATE 4% CLEANSER FOR DECOLONIZATION TP SCH (22:00)
--- NOTE | 2019-02-09 10:10 | OP ---
DATE OF OPERATION: 02/08/2019 PREOPERATIVE DIAGNOSIS: Abdominal aortic aneurysm. POSTOPERATIVE DIAGNOSIS: Abdominal aortic aneurysm. PROCEDURE: Bilateral groin cutdowns with aortogram. SURGEON: Jonah Velazquez DO PHYSICIAN OFFICE SECRETARY: DAMION Ryan BLOOD LOSS: 200 mL. INDICATIONS: The patient is a 53-year-old male that came into our ER with some abdominal pain. He had been scheduled at [facility] for an endovascular repair of his AAA but did not go on Monday to that appointment due to cancellation of his surgery. He then came to us through the ER. He had a CTA performed here at the hospital showing that he has a 5-cm AAA with bilateral common iliac artery aneurysms measuring about 4 cm with the internal iliac arteries coming off of those aneurysms. Then upon reviewing his images and seeing the patient, we contacted the proper vendor for an aortic stent graft, and the patient was scheduled for the procedure. Prior to the procedure, patient was cleared by Cardiology and Medicine. Patient had a stress test that showed mild ischemia in his heart. The patient was then brought to the operating room. The patient was then consented for the procedure understanding all risks, benefits, and alternatives. DESCRIPTION OF PROCEDURE: Once in the operating room, he was laid on the operating table in supine manner, and general anesthesia was administered to the patient. Pagan catheter was placed. Under ultrasound guidance, we visualized the bilateral common femoral arteries, and those were marked on the skin, and a transverse incision was drawn using a skin marker. We then went ahead and prepped and draped the chest, the abdomen, and the groin in a sterile surgical manner. We then went ahead and opened each of the groins using a 15 blade, and a 5-cm incision was made. Bovie electrocautery was used to control hemostasis, and we were able to get down through all the subcutaneous tissue. Metzenbaum scissors were used, and we were able to get down to the femoral sheath, and we were able to open and get down to the common femoral artery. Common femoral artery was dissected anteriorly and posteriorly, and vessel loops were placed proximally and distally bilaterally. We then went ahead and took our micropuncture needle and cannulated the left common femoral artery, and a micropuncture wire was placed. Micropuncture sheath was placed, and a 0.035 floppy guidewire was placed and a 16-Zimbabwean DrySeal sheath was placed. On the opposite side, we then went ahead and placed a 0.035 floppy guidewire and placed our micropuncture sheath and our micropuncture wire. We then tried to place our 0.035 floppy guidewire up into the aorta; however, the right external iliac artery was diseased and was very tortuous, and we could not cross the right external iliac to place the wire up into the aorta. We tried multiple different wires. We used multiple different sheaths. We even tried to go up and over to cross the lesion and bring the wire up, but we were unsuccessful. After 2 hours, we decided that at this point we would stop the procedure and the patient would probably need an open operation and would need to be transferred to a tertiary care center for that due to his recent stress test that was positive. At this point, we went ahead and removed all our sheaths. We used 6-0 Prolene double arm and closed the arteriotomies in a running fashion bilaterally. We then irrigated the wounds copiously. A 3-0 Vicryl was used, and the subcutaneous tissue was approximated in interrupted manner, and the skin was closed with skin hao. The area was wet and dried. A 4 x 4 and Tegaderms were placed bilaterally. Patient tolerated the procedure with no complications. Patient transferred to ICU for surveillance. Total blood loss 200 mL. JONAH VELAZQUEZ DO NP/[id number]
--- NOTE | 2019-02-11 13:23 | DS ---
Physical Exam: SUBJECTIVE: see progress note from 02/08/19 OBJECTIVE: PHYSICAL EXAM see progress note from 02/08/19 LABS HOSPITAL COURSE: Date of Admission:02/05/19 Date of Discharge: 02/08/19 HPI on Admission: Patient is a 53 yo M with a PMHx of CAD s/p CABG, AAA, presented with worsening abdominal pain over the last month. He describes the pain as 10/10, sharp, in the R lower abdomen but mostly localized in the R groin. He came to the ED earlier today for evaluation but left AMA because of family issues. CTA scan done in the ER, showed AAA 5cm with signs of impending rupture with mesenteric stranding which has increased in size since 11/13. Patient was supposed to have the AAA repaired in November but said he had insurance problems. He mentions not having a BM in 2 days. He also says he noticed his stools have been dark in the last few weeks. Denies sob, chest pain, nausea, vomiting, dizziness, urinary changes, headaches, lightheadedness. Hospital course: Pt was seen by cardiology who recommended stress test prior to AAA repair which revealed a mild inferior ischemia. Pt was deemed medically optimized for AAA repair. He was started on labetalol in attempt to control HR and b.p. He was taken to the OR by vascular surgery who was unable to complete the procedure due to the tortuosity of his iliac arteries, unable to pass the guidewire. It was recommended he be transferred to tertiary [facility] for further management and possible open procedure in a facility with an active label sewer due to the patients cardiac hx and ischemia noted on stress test. Pt was transferred to [facility]. Minutes to complete discharge: 35 Discharge Summary Reason For Visit: ABDOMINAL AORTIC ANEEURYSM (AAA),ABD PAIN Condition: Fair - Instructions Diet, Activity, Other Instructions: You were admitted with abdominal pain for an enlarging abdominal aortic aneurysm. You were seen by cardiology who recommended a stress test prior to having your aneurysm repaired by a vascular surgeon. The vascular surgeon was unable to repair your aneurysm at this institution and recommended transfer to a tertiary care center. All current medications and care should be continued upon transfer. Following discharge, you should follow up with your primary care physician and vascular surgeon as instructed upon discharge from the tertiary care center. Disposition: TRANSFER ACUTE CARE/OTHER HOSP - Home Medications Comprehensive Discharge Medication List: Ambulatory Orders [facility] Sodium [Singulair] 10 mg PO DAILY 11/08/18 Atorvastatin Ca [Lipitor] 40 mg PO HS tablet 02/08/19 Docusate Sodium [Colace -] 100 mg PO TID capsule 02/08/19 Folic Acid - 1 mg PO DAILY tablet 02/08/19 Hydrocortisone 1% Cream [Hytone 1% Cream -] 1 applic TP Q12H PRN tube 02/08/19 Labetalol HCl [Normodyne -] 100 mg PO BID tablet 02/08/19 Ondansetron Injection [Zofran Injection] 4 mg IVPUSH Q6H PRN vial 02/08/19 Pantoprazole Sodium [Protonix -] 20 mg PO AM tablet.ec 02/08/19 Polyethylene Glycol 3350 [Miralax 119 gm Btl -] 17 gm PO PRN PRN bottle Thiamine HCl [Vitamin B1 Injection -] 200 mg IVPB DAILY vial 02/08/19 This patient is new to me today: No Emergency Visit: Yes ED Registration Date: 02/05/19 Care time: The patient presented to the Emergency Department on the above date and was hospitalized for further evaluation of their emergent condition. Critical Care patient: No - Discharge Referral Referred to [facility] Med P.C.: No
== END 2019-02-08 21:45 | disposition short-term general hospital (02) | DRG 181 ==
LOC: JER 18:44 → JERBED 21:41 → OBSVTOIN 22:45 → J8W 23:10 → JICU 02-08 13:57
PROVIDERS: ADMIT Internal Medicine; ATTEND Internal Medicine
PROC: 04VK3DZ Restriction of Right Femoral Artery with Intraluminal Device, Percutaneous Approach (ICD-10-PCS; 2019-02-08)
PROC: B400YZZ Plain Radiography of Abdominal Aorta using Other Contrast (ICD-10-PCS; 2019-02-08)
PROC: 4A133B1 Monitoring of Arterial Pressure, Peripheral, Percutaneous Approach (ICD-10-PCS; 2019-02-08)
PROC: 4A133J1 Monitoring of Arterial Pulse, Peripheral, Percutaneous Approach (ICD-10-PCS; 2019-02-08)
PROC: 04VL3DZ Restriction of Left Femoral Artery with Intraluminal Device, Percutaneous Approach (ICD-10-PCS; principal; 2019-02-08 09:00)
DX: I71.4 Abdominal aortic aneurysm, without rupture (principal); I10 Essential (primary) hypertension; E78.5 Hyperlipidemia, unspecified; I25.10 Atherosclerotic heart disease of native coronary artery without angina pectoris; J44.9 Chronic obstructive pulmonary disease, unspecified; D72.829 Elevated white blood cell count, unspecified; I72.3 Aneurysm of iliac artery; I73.9 Peripheral vascular disease, unspecified; F10.10 Alcohol abuse, uncomplicated; F17.210 Nicotine dependence, cigarettes, uncomplicated; K59.00 Constipation, unspecified; I99.8 Other disorder of circulatory system; L40.8 Other psoriasis; Z90.81 Acquired absence of spleen; Z95.1 Presence of aortocoronary bypass graft; E66.9 Obesity, unspecified; Z68.29 Body mass index [BMI] 29.0-29.9, adult
CPT/HCPCS: 36415; 71275-TC; 74174-TC; 76000-TC-FY; 78452-TC; 80048; 80053; 80061; 80307; 81003; 83721; 83735; 84100; 85025; 85027; 85610; 86850; 86900; 86901; 86922; 93005; 93010; 93017; 93306-TC; 93880-TC; 99282-25; 99284-25; A9502; G0378; J0131; J1644; J2785; J7030

== ENCOUNTER 2019-06-01 19:18 | Emergency (ER) | payer OTHER ==
[2019-06-01 19:29] VITALS: BP 121/82; PULSE 90; TEMP 98.3; BMI 27.4
--- NOTE | 2019-06-01 20:18 | PDOC ---
Documentation entered by Kerry Tran SCRIBE, acting as scribe for Leo Gonzalez MD. Leo Gonzalez MD: This documentation has been prepared by the narcisaibe, Kerry Tran SCRIBE, under my direction and personally reviewed by me in its entirety. I confirm that the documentation accurately reflects all work , treatment, procedures, and medical decision making performed by me. History of Present Illness - General Chief Complaint: Injury Stated Complaint: RT ANKLE PAIN Time Seen by Provider: 06/01/19 19:39 History Source: Patient Exam Limitations: No Limitations - History of Present Illness Initial Comments: 06/01/19 19:42 The patient is a 53-year-old male who presents to the emergency department with right ankle pain with swelling. The patient reports he was walking along the sidewalk when he twisted the ankle. Denies fall. Denies numbness or tingling. PAST MEDICAL HISTORY: no significant history PAST SURGICAL HISTORY: no significant history FAMILY HISTORY: no pertinent history SOCIAL HISTORY: Pt lives with family. MEDICATIONS: reviewed ALLERGIES: As per nursing notes General: No fevers or chills, no weakness, no weight loss HEENT: No change in vision. No sore throat,. No ear pain CardioVascular: No chest pain or shortness of breath Respiratory:No cough, or wheezing. Gastrointestinal: no nausea, vomiting, diarrhea or constipation, No rectal bleeding Genitourinary: No dysuria, hematuria, or frequency Musculoskeletal: +right ankle pain. No other joint or muscle pain or swelling Neurologic: No headache, vertigo, dizziness or loss of consciousness Psychiatric: nor depression Skin: No rashes or easy bruising Endocrine: no increased thirst or abnormal weight change Allergic: no skin or latex allergy All other systems reviewed and normal General: The patient is awake, alert, and fully oriented, in no acute distress. EXTREMITIES: Right ankle tender and swelling to the lateral melleteous, no tenderness to the base of the 5th metatarsal, neurovascularly intact distally. Assessment and plan: This is a 53-year-old male who comes in complaining of right ankle pain. Patient twisted his right ankle prior to arrival. X-ray was done and interpreted by B was negative for any acute pathology specifically no fracture Emigdio wrap and discharged 06/01/19 20:23 Past History - Past Medical History Allergies/Adverse Reactions: Allergies Allergy/AdvReac Type Severity Reaction Status Date / Time No Known Allergies Allergy Verified 02/05/19 19:03 Home Medications: Ambulatory Orders Montelukast Sodium [Singulair] 10 mg PO DAILY 11/08/18 Atorvastatin Ca [Lipitor] 40 mg PO HS tablet 02/08/19 Docusate Sodium [Colace -] 100 mg PO TID capsule 02/08/19 Folic Acid - 1 mg PO DAILY tablet 02/08/19 Hydrocortisone 1% Cream [Hytone 1% Cream -] 1 applic TP Q12H PRN tube 02/08/19 Labetalol HCl [Normodyne -] 100 mg PO BID tablet 02/08/19 Ondansetron Injection [Zofran Injection] 4 mg IVPUSH Q6H PRN vial 02/08/19 Pantoprazole Sodium [Protonix -] 20 mg PO AM tablet.ec 02/08/19 Polyethylene Glycol 3350 [Miralax 119 gm Btl -] 17 gm PO PRN PRN bottle Thiamine HCl [Vitamin B1 Injection -] 200 mg IVPB DAILY vial 02/08/19 Anemia: No Asthma: No Cancer: No Cardiac Disorders: Yes (CHD) CVA: No COPD: Yes CHF: No Dementia: No Diabetes: No GI Disorders: Yes Disorders: No HTN: No Hypercholesterolemia: Yes (no medications) Kidney Stones: No Liver Disease: No Psychiatric Problems: Yes (Alcoholism) Seizures: No Thyroid Disease: No - Surgical History Abdominal Surgery: Yes (AAA) Appendectomy: No Cardiac Surgery: Yes (OPEN HEART trple by pass in 2008 at [facility]) Cholecystectomy: No Lung Surgery: No Neurologic Surgery: No Orthopedic Surgery: No - Reproductive History Testicular Surgery: No - Suicide/Smoking/Psychosocial Hx Smoking History: Current every day smoker Have you smoked in the past 12 months: Yes Number of Cigarettes Smoked Daily: 40 Cigars Per Day: 0 Information on smoking cessation initiated: Yes 'Breaking Loose' booklet given: 07/01/18 Hx Alcohol Use: No Drug/Substance Use Hx: No Substance Use Type: Alcohol Hx Substance Use Treatment: Yes (2006) *Physical Exam - Vital Signs Last Vital Signs Temp Pulse Resp BP Pulse Ox 98.3 F 90 18 121/82 95 06/01/19 19:22 06/01/19 19:22 06/01/19 19:22 06/01/19 19:22 06/01/19 19:22 *DC/Admit/Observation/Transfer Diagnosis at time of Disposition: Right ankle sprain Qualifiers: Encounter type: initial encounter Involved ligament of ankle: unspecified ligament Qualified Code(s): S93.401A - Sprain of unspecified ligament of right ankle, initial encounter - Discharge Dispostion Disposition: HOME Condition at time of disposition: Stable Decision to Admit order: No - Referrals - Patient Instructions Additional Instructions: Tylenol or Motrin as needed for pain. Wear the Emigdio wrap for support as needed. You can bear weight as tolerated. Return to the emergency department immediately with ANY new, persistent or worsening symptoms. Continue any medications as previously prescribed by your physician. You should follow up with your primary doctor as soon as possible regarding today's emergency department visit. . Please make sure your doctor reviews the results of your emergency evaluation. Thank you for coming to the Emergency Department today for your care. It was a pleasure to see you today. Please note that your evaluation is INCOMPLETE until you follow-up with your doctor. - Post Discharge Activity
== END 2019-06-01 20:33 | disposition home or self-care (01) ==
LOC: FER 19:18
DX: S93.401A Sprain of unspecified ligament of right ankle, initial encounter (principal); F17.210 Nicotine dependence, cigarettes, uncomplicated; M25.571 Pain in right ankle and joints of right foot; M25.471 Effusion, right ankle; I50.9 Heart failure, unspecified; F10.10 Alcohol abuse, uncomplicated
CPT/HCPCS: 73610-TC-RT-FY; 99282-25